=== PATIENT | male | born 1955 | race Caucasian/White ===

== ENCOUNTER 2019-06-05 11:29 | Inpatient (IN) | payer MEDICARE ==
[2019-06-05 12:54] LABS: VENOUS BLOOD HCO3 23.6 mmol/L (20-32); VENOUS BLOOD PCO2 35.9 mmHg (35-63); VENOUS BLOOD PH 7.44 (7.30-7.42)
[2019-06-05 13:01] LABS: HEMATOCRIT 32.8 % (37.9-51.0); HEMOGLOBIN 11.3 g/dL (13.5-17.0); MEAN CORPUSCULAR HEMOGLOBIN 30.5 pg (27.0-33.4); MEAN CORPUSCULAR HGB CONC 34.4 g/dL (32.0-36.0); MEAN CORPUSCULAR VOLUME 88 fl (80-97); PLATELET COUNT 210 10^3/uL (150-450); RED BLOOD COUNT 3.71 10^6/uL (4.35-5.55); RED CELL DISTRIBUTION WIDTH 16.6 % (11.5-14.0); WHITE BLOOD COUNT 6.5 10^3/uL (4.0-10.5)
[2019-06-05 13:11] LABS: ALBUMIN 2.4 g/dL (3.5-5.0); ALKALINE PHOSPHATASE 67 U/L (38-126); ANION GAP 14 (5-19); ASPARTATE AMINO TRANSFERASE 43 U/L (17-59); BILIRUBIN,DIRECT 2.4 mg/dL (0.0-0.4); BILIRUBIN,TOTAL 3.1 mg/dL (0.2-1.3); BLOOD UREA NITROGEN 30 mg/dL (7-20); CALCIUM 8.4 mg/dL (8.4-10.2); CARBON DIOXIDE 22 mmol/L (22-30); CHLORIDE 85 mmol/L (98-107); GLUCOSE 84 mg/dL (75-110); POTASSIUM 4.6 mmol/L (3.6-5.0); TOTAL PROTEIN 5.2 g/dL (6.3-8.2)
[2019-06-05] MEDS ORDERED: RINGERS SOLUTION,LACTATED 1,000 ML IV ONE (13:11)
--- NOTE | 2019-06-05 13:24 | RADIOLOGY REPORT (SQ) ---
EXAM DESCRIPTION: CHEST SINGLE VIEW COMPLETED DATE/TIME: 06/05/2019 1:03 pm REASON FOR STUDY: shortness of breath COMPARISON: None. EXAM PARAMETERS: NUMBER OF VIEWS: One view. TECHNIQUE: Single frontal radiographic view of the chest acquired. RADIATION DOSE: NA LIMITATIONS: None. FINDINGS: LUNGS AND PLEURA: Extensive density in the left chest. Right lung clear. MEDIASTINUM AND HILAR STRUCTURES: No masses. Contour normal. HEART AND VASCULAR STRUCTURES: Heart normal in size. Normal vasculature. BONES: No acute findings. HARDWARE: None in the chest. OTHER: No other significant finding. IMPRESSION: EXTENSIVE DENSITY IN THE LEFT CHEST. DIFFERENTIAL INCLUDES MASS, PNEUMONIA, AND PLEURAL EFFUSION. THERE MAY BE ELEVATION OF THE LEFT HEMIDIAPHRAGM WELL. COMPARISON WITH PRIOR STUDIES WOULD BE EXTREMELY HELPFUL. THE RIGHT LUNG IS CLEAR. TECHNICAL DOCUMENTATION: JOB ID: [id number] [employer]- All Rights Reserved Reading location - IP/workstation name: [email or web address]
[2019-06-05 13:28] LABS: ABSOLUTE LYMPHOCYTES# (MANUAL) 0.2 10^3/uL (0.5-4.7); ABSOLUTE MONOCYTES # (MANUAL) 0.1 10^3/uL (0.1-1.4); BAND NEUTROPHILS % (MANUAL) 1 % (3-5); BASOPHILS % (MANUAL) 0 % (0-2); EOSINOPHILS % (MANUAL) 0 % (0-6); LYMPHOCYTES % (MANUAL) 3 % (13-45); MONOCYTES % (MANUAL) 2 % (3-13); SEGMENTED NEUTROPHILS % (MAN) 94 % (42-78); TOTAL CELLS COUNTED 100
[2019-06-05 13:30] LABS: ANISOCYTOSIS SLIGHT; TOXIC GRANULATION 1+; TOXIC VACUOLATION PRESENT
[2019-06-05 13:31] LABS: PLATELET COMMENT ADEQUATE
--- NOTE | 2019-06-05 13:33 | ER Document Report ---
Entered by LILLIAN MERLOS SCRIBE 06/05/19 1228 Acting as scribe for:JUDE CHEUNG MD ED Respiratory Problem - General Chief Complaint: Shortness Of Breath Stated Complaint: DIFFICULTY BREATHING Time Seen by Provider: 06/05/19 12:17 Mode of Arrival: Ambulatory Information source: Patient Notes: 63-year-old male with recent lung cancer diagnosis that presents to the emergency department today with complaints of shortness of breath. Patient states it hurts when he breathes on the left-hand side. Patient has started radiation therapy and has had one round of chemotherapy about 2 weeks ago. When he went in for his second dosage of chemotherapy he "only got IV fluids because he was dehydrated". Patient also complains of nausea. TRAVEL OUTSIDE OF THE [place] IN LAST 30 DAYS: No - Related Data Allergies/Adverse Reactions: lisinopril Allergy (Verified 06/05/19 11:51) niacin Allergy (Verified 06/05/19 11:51) Home Medications: patient unsure Past Medical History - General Information source: Patient - Social History Smoking Status: Current Every Day Smoker Cigarette use (# per day): Yes Chew tobacco use (# tins/day): No Frequency of alcohol use: None Drug Abuse: None Lives with: Spouse/Significant other Family History: Reviewed & Not Pertinent Patient has suicidal ideation: No Patient has homicidal ideation: No Pulmonary Medical History: Reports: Hx COPD Malignancy Medical History: Reports Hx Lung Cancer Review of Systems - Review of Systems Constitutional: No symptoms reported EENT: No symptoms reported Cardiovascular: No symptoms reported Respiratory: See HPI, Hurts to breathe, Short of breath Gastrointestinal: No symptoms reported Genitourinary: No symptoms reported Male Genitourinary: No symptoms reported Musculoskeletal: No symptoms reported Skin: No symptoms reported Hematologic/Lymphatic: No symptoms reported Neurological/Psychological: No symptoms reported -: Yes All other systems reviewed and negative Physical Exam - Vital signs Vitals: Temp Pulse Resp BP Pulse Ox 97.7 F 125 H 26 H 103/50 L 95 06/05/19 11:34 06/05/19 11:34 06/05/19 11:34 06/05/19 11:34 06/05/19 11:34 - Notes Notes: Physical Exam: General: Alert. Looks tired and worn out. HEENT: Normocephalic. Atraumatic. PERRL. Extraocular movements intact. Oropharynx clear. Neck: Supple. Non-tender. Respiratory: Patient is dyspneic, a little tachypneic. Breath sounds are decreased in the left lower half of the chest. Cardiovascular: Regular tachycardia. Abdominal: Normal Inspection. Non-tender. No distension. Normal Bowel Sounds. Back: No gross abnormalities. Extremities: Moves all four extremities. Upper extremities: Normal inspection. Normal ROM. Lower extremities: Normal inspection. No edema. Normal ROM. Neurological: Normal cognition. AAOx4. Normal speech. Psychological: Normal affect. Normal Mood. Skin: Warm. Dry. Normal color. Course - Re-evaluation Re-evalutation: 06/05/19 14:47 Patient serum sodium is 120.5, chest x-ray shows large mass in the left chest. Venous blood gas shows the patient is hyperventilating to maintain his oxygen saturation with a venous PCO2 of 35.9 and pH of 7.44 06/05/19 14:48 I did discuss case with Dr. Walker. He states that the patient was much more robust when seen in the office the beginning of the week. He has been in the office 3 times this week, getting 2 L of IV fluids on Thursday, and 2 to 3 L in the office earlier in the week. He requests the patient get CT scan of the chest to have a baseline in our system, and to exclude worsening of his mass, new pneumonia, or effusion. - Vital Signs Vital signs: Temp Pulse Resp BP Pulse Ox 99.8 F 125 H 25 H 128/63 H 96 06/05/19 14:47 06/05/19 11:34 06/05/19 16:00 06/05/19 16:00 06/05/19 16:00 - Laboratory Result Diagrams: 06/05/19 12:10 06/05/19 12:10 Laboratory results interpreted by me: 06/05/19 06/05/19 06/05/19 12:10 12:10 12:10 RBC 3.71 L Hgb 11.3 L Hct 32.8 L RDW 16.6 H Seg Neuts % (Manual) 94 H Band Neutrophils % 1 L Lymphocytes % (Manual) 3 L Monocytes % (Manual) 2 L Abs Lymphs (Manual) 0.2 L VBG pH 7.44 H Sodium 120.5 L* Chloride 85 L BUN 30 H Total Bilirubin 3.1 H Direct Bilirubin 2.4 H Creatine Kinase Total Protein 5.2 L Albumin 2.4 L Urine Protein Urine Ketones Urine Blood Urine Bilirubin Urine Urobilinogen 06/05/19 06/05/19 12:10 13:56 RBC Hgb Hct RDW Seg Neuts % (Manual) Band Neutrophils % Lymphocytes % (Manual) Monocytes % (Manual) Abs Lymphs (Manual) VBG pH Sodium Chloride BUN Total Bilirubin Direct Bilirubin Creatine Kinase 42 L Total Protein Albumin Urine Protein 100 H Urine Ketones TRACE H Urine Blood MODERATE H Urine Bilirubin MODERATE H Urine Urobilinogen 4.0 H - Diagnostic Test Radiology reviewed: Image reviewed, Reports reviewed - Chest x-ray shows an extensive density in the left chest. He does have known stage III lung cancer. There are no comparison films available. CT scan of the chest shows extensive abnormality on the left with volume loss, innumerable nodules in the left upper lobe. Extensive density in left lung base may be due to a combination of mass, atelectasis, and/or pneumonia. - EKG Interpretation by Me EKG shows normal: Sinus rhythm, Mcewen, Intervals, QRS Complexes, ST-T Waves Rate: Tachycardia - 118 Rhythm: NSR - Consults Dr. Dias Time consulted: 15:50 Consulted provider: will come to ER Discharge - Discharge Clinical Impression: Shortness of breath, Hyponatremia, Hypoxia, Tachycardia Lung cancer Qualifiers: Laterality: left Lung location: lower lobe of lung Qualified Code(s): C34.32 - Malignant neoplasm of lower lobe, left bronchus or lung Hypotension Qualifiers: Hypotension type: unspecified hypotension type Qualified Code(s): I95.9 - H ypotension, unspecified Condition: Fair Disposition: ADMITTED INPATIENT Admitting Provider: Larissa (Hospitalist) Unit Admitted: IMCU Scribe Attestation: 06/05/19 14:59 I personally performed the services described in the documentation, reviewed and edited the documentation which was dictated to the scribe in my presence, and it accurately records my words and actions. I personally performed the services described in the documentation, reviewed and edited the documentation which was dictated to the scribe in my presence, and it accurately records my words and actions.
[2019-06-05 14:21] LABS: APPEARANCE,URINE SLIGHTLY-CLOUDY; BILIRUBIN,URINE MODERATE (NEGATIVE); COLOR,URINE AMBER; GLUCOSE, URINE NEGATIVE (NEGATIVE); KETONES,URINE TRACE mg/dL (NEGATIVE); LEUKOCYTE ESTERASE,URINE NEGATIVE (NEGATIVE); NITRITE,URINE NEGATIVE (NEGATIVE); PROTEIN,URINE 100 mg/dL (NEGATIVE); URINE SPECIFIC GRAVITY 1.025
[2019-06-05] MEDS ORDERED: DEXTROSE 5%-LACTATED RINGERS 1,000 ML IV ONE (14:40)
--- NOTE | 2019-06-05 15:22 | RADIOLOGY REPORT (SQ) ---
EXAM DESCRIPTION: CT CHEST WITHOUT COMPLETED DATE/TIME: 06/05/2019 3:04 pm REASON FOR STUDY: Known large left mass, increased SOB COMPARISON: None. TECHNIQUE: CT scan performed of the chest without intravenous contrast. Images reviewed with lung, soft tissue and bone windows. Reconstructed coronal and sagittal MPR images reviewed. All images st ored on PACS. All CT scanners at this facility use dose modulation, iterative reconstruction, and/or weight based d osing when appropriate to reduce radiation dose to as low as reasonably achievable (ALARA). [facility]: Dose Right [facility]: CareDose [facility]: Dose Right [facility]: Teradose 4D [facility]: Smart Whisher RADIATION DOSE: CT Rad equipment meets quality standard of care and radiation dose reduction techniq ues were employed. CTDIvol: 6.9 mGy. DLP: 251 mGy-cm. mGy. LIMITATIONS: No technical limitations. FINDINGS: LUNGS AND PLEURA: Volume loss on the left. Innumerable nodules in the left upper lobe. E xtensive density in the left lung base with air bronchograms. Left pleural effusion. Right lung jonah ar. HILAR AND MEDIASTINAL STRUCTURES: No identified masses or abnormal nodes. No obvious aneurysm. HEART AND VASCULAR STRUCTURES: No aneurysm. No pericardial effusion. UPPER ABDOMEN: No significant findings. Limited exam. THYROID AND OTHER SOFT TISSUES: No masses. No adenopathy. BONES: No significant finding. HARDWARE: None in the chest. OTHER: No other significant findings. IMPRESSION: EXTENSIVE ABNORMALITY ON THE LEFT. VOLUME LOSS. INNUMERABLE NODULES IN THE LEFT UPPER LOBE. EXTENSIVE DENSITY IN THE LEFT LUNG BASE WHICH MAY BE DUE TO A COMBINATION OF MASS, ATELECTASIS , AND/OR PNEUMONIA. NO PRIORS TO ASSESS FOR STABILITY OR PROGRESSION. RIGHT LUNG CLEAR. TECHNICAL DOCUMENTATION: JOB ID: [id number] Quality ID # [id number]: Final reports with documentation of one or more dose reduction techniques (e.g., Au tomated exposure control, adjustment of the mA and/or kV according to patient size, use of iterative reconstruction technique) 2010 [employer]- All Rights Reserved Reading location - IP/workstation name: [email or web address]
--- NOTE | 2019-06-05 16:34 | PDOC H&P ---
History of Present Illness Admission Date/PCP: 06/05/19 16:02 GUSTAVO SANCHEZ MD History of Present Illness: EBEN BLOOD SR is a 63 year old male past medical history of CAD status post PCI x2 stents, hyperlipidemia, hypertension, nephrotic syndrome, and recently diagnosed lung cancer currently on XRT, last chemo 9 days ago, last radiation last Thursday, presented to ED complaining of worsening shortness of breath, left- sided pleuritic chest pain, fever, chills, nausea, productive cough, severe fatigue. Denies any abdominal pain, vomiting, diarrhea, constipation, or any urinary symptoms. In ED he was found to be tachypneic, tachycardic, with sodium of [address] of left-sided complete opacification. Past Medical History Pulmonary Medical History: Reports: Chronic Obstructive Pulmonary Disease (COPD) Malignancy Medical History: Reports: Lung Cancer Social History Lives with: Spouse/Significant other Smoking Status: Current Every Day Smoker Electronic Cigarette use?: No Family History Family History: Reviewed & Not Pertinent Parental Family History Reviewed: Yes Children Family History Reviewed: Yes Sibling(s) Family History Reviewed.: Yes Medication/Allergy Allergies/Adverse Reactions: lisinopril Allergy (Verified 06/05/19 11:51) niacin Allergy (Verified 06/05/19 11:51) Review of Systems Review of Systems: as per hpi Physical Exam Vital Signs: Temp Pulse Resp BP Pulse Ox 99.8 F 125 H 25 H 128/63 H 96 06/05/19 14:47 06/05/19 11:34 06/05/19 16:00 06/05/19 16:00 06/05/19 16:00 Intake & Output 06/04/19 06/05/19 06/06/19 06:59 06:59 06:59 Intake Total 1000 Balance 1000 Weight 65.771 kg General appearance: PRESENT: mild distress Respiratory exam: PRESENT: chest wall tenderness, decreased breath sounds - Left chest., tachypnea. ABSENT: rales, rhonchi, wheezes Cardiovascular exam: PRESENT: RRR, tachycardia. ABSENT: diastolic murmur, rubs, systolic murmur GI/Abdominal exam: PRESENT: normal bowel sounds, soft. ABSENT: distended, guarding, mass, organolmegaly, rebound, tenderness Extremities exam: PRESENT: full ROM. ABSENT: calf tenderness, clubbing, pedal edema Neurological exam: PRESENT: alert, awake, oriented to person, oriented to place, oriented to time, oriented to situation, CN II-XII grossly intact. ABSENT: motor sensory deficit Results Laboratory Results: 06/05/19 12:10 06/05/19 12:10 06/05/19 06/05/19 06/05/19 12:10 12:10 12:10 WBC 6.5 RBC 3.71 L Hgb 11.3 L Hct 32.8 L MCV 88 MCH 30.5 MCHC 34.4 RDW 16.6 H Plt Count 210 Seg Neutrophils % Not Reportable VBG pH VBG pCO2 VBG HCO3 VBG Base Excess Sodium 120.5 L* Potassium 4.6 Chloride 85 L Carbon Dioxide 22 Anion Gap 14 BUN 30 H Creatinine 0.82 Est GFR ( Amer) > 60 Glucose 84 Lactic Acid 1.7 Calcium 8.4 Magnesium Total Bilirubin 3.1 H AST 43 Alkaline Phosphatase 67 Total Protein 5.2 L Albumin 2.4 L Urine Color Urine Appearance Urine pH Ur Specific [place] Urine Protein Urine Glucose (UA) Urine Ketones Urine Blood Urine Nitrite Ur Leukocyte Esterase Urine WBC (Auto) Urine RBC (Auto) 06/05/19 06/05/19 06/05/19 12:10 12:10 13:56 WBC RBC Hgb Hct MCV MCH MCHC RDW Plt Count Seg Neutrophils % VBG pH 7.44 H VBG pCO2 35.9 VBG HCO3 23.6 VBG Base Excess 0 Sodium Potassium Chloride Carbon Dioxide Anion Gap BUN Creatinine Est GFR ( Amer) Glucose Lactic Acid Calcium Magnesium 2.1 Total Bilirubin AST Alkaline Phosphatase Total Protein Albumin Urine Color BENJY Urine Appearance SLIGHTLY-CLOUDY Urine pH 5.0 Ur Specific [place] 1.025 Urine Protein 100 H Urine Glucose (UA) NEGATIVE Urine Ketones TRACE H Urine Blood MODERATE H Urine Nitrite NEGATIVE Ur Leukocyte Esterase NEGATIVE Urine WBC (Auto) 3 Urine RBC (Auto) 1 06/05/19 06/05/19 12:10 12:10 Creatine Kinase 42 L Troponin I < 0.012 Impressions: Chest X-Ray 06/05/19 00:00 IMPRESSION: EXTENSIVE DENSITY IN THE LEFT CHEST. DIFFERENTIAL INCLUDES MASS, PNEUMONIA, AND PLEURAL EFFUSION. THERE MAY BE ELEVATION OF THE LEFT HEMIDIAPHRAGM WELL. COMPARISON WITH PRIOR STUDIES WOULD BE EXTREMELY HELPFUL. THE RIGHT LUNG IS CLEAR. Chest CT 06/05/19 14:41 IMPRESSION: EXTENSIVE ABNORMALITY ON THE LEFT. VOLUME LOSS. INNUMERABLE NODULES IN THE LEFT UPPER LOBE. EXTENSIVE DENSITY IN THE LEFT LUNG BASE WHICH MAY BE DUE TO A COMBINATION OF MASS, ATELECTASIS, AND/OR PNEUMONIA. NO PRIORS TO ASSESS FOR STABILITY OR PROGRESSION. RIGHT LUNG CLEAR. Assessment and Plan - Diagnosis (1) Acute respiratory failure Qualifiers: Respiratory failure complication: unspecified whether with hypoxia or hypercapnia Qualified Code(s): J96.00 - Acute respiratory failure, unspecified whether with hypoxia or hypercapnia Is this a current diagnosis for this admission?: Yes Plan: Multifactorial. Likely pneumonia/pneumonitis given the history of recently diagnosed lung cancer and chemoradiation. Blood and sputum culture. We will start on broad-spectrum IV antibiotics, IV steroids, aggressive pulmonary toileting, flutter valve, incentive spirometry, DuoNeb's, supplemental oxygen, PRN BiPAP. (2) Hyponatremia Is this a current diagnosis for this admission?: Yes Plan: Likely SIADH due to underlying lung malignancy. We will check urine osmolality and TSH. Continue normal saline for now. Limit free water intake. (3) Lung cancer Qualifiers: Laterality: left Lung location: lower lobe of lung Qualified Code(s): C34.32 - Malignant neoplasm of lower lobe, left bronchus or lung Is this a current diagnosis for this admission?: Yes Plan: History of tobacco abuse. Diagnosed a month ago. Left lung cancer. No biopsy results available. See Dr. Sanchez as outpatient. Oncology been notified. Pending recommendations. (4) Hx of coronary artery disease Is this a current diagnosis for this admission?: Yes Plan: History of CAD with PCI x II stent. Denies any anginal pain. Will restart home meds. Outpatient PCP and cardiology follow-up. (5) HTN (hypertension) Is this a current diagnosis for this admission?: Yes Plan: Restart home meds. Adjust meds as needed. (6) Hx: nephrotic syndrome Is this a current diagnosis for this admission?: Yes Plan: History of nephrotic syndrome. No previous history available. As per family he was started on some extremity medication and his proteinuria resolved. Outpatient nephrology follow-up. (7) Hyperlipidemia Is this a current diagnosis for this admission?: Yes Plan: Restart home meds. (8) Former smokeless tobacco use Is this a current diagnosis for this admission?: Yes Plan: Former heavy smoker. Quit a month ago. Will provide NicoDerm patch if required. Encouraged abstinence.
[2019-06-05] MEDS ORDERED: OXYCODONE-ACETAMINOPHEN 5-325 MG TABLET PO PRN (16:46)
[2019-06-05] MEDS ORDERED: MAG HYDROX/AL HYDROX/SIMETH SUSP 30 ML UDCUP PO PRN (16:46)
[2019-06-05] MEDS ORDERED: ACETAMINOPHEN 325 MG TABLET PO PRN (16:46)
[2019-06-05] MEDS ORDERED: PROMETHAZINE HCL INJ 25 MG/1 ML VIAL IV PRN (16:46)
[2019-06-05] MEDS ORDERED: ONDANSETRON HCL INJ/PF 4 MG/2 ML SDV IV PRN (16:46)
[2019-06-05] MEDS ORDERED: HYDRALAZINE HCL INJ/PF 20 MG/1 ML SDV IV PRN (16:50)
[2019-06-05] MEDS ORDERED: MORPHINE SULFATE 10 MG/ML INJ IV PRN (16:50)
[2019-06-05] MEDS ORDERED: LORAZEPAM INJ 2 MG/1 ML VIAL IV PRN (16:50)
[2019-06-05] MEDS ORDERED: VANCOMYCIN HCL 0 MG in DEXTROSE 5%-WATER 250 ML IV NR (17:15)
[2019-06-05] MEDS ORDERED: METOPROLOL TARTRATE PF/INJ 5 MG/5 ML SDV IV PRN (17:15)
[2019-06-05] MEDS ORDERED: METHYLPREDNISOLONE INJ 40 MG/1 ML SDV IV ONE (17:30)
[2019-06-05] MEDS: GUAIFENESIN/CODEINE PHOS 100-10 MG/ 5 ML UDC PO SCH (17:45)
[2019-06-05] MEDS: NORMAL SALINE 1000 ML 1,000 ML IV PRN (17:45)
[2019-06-05] MEDS: PANTOPRAZOLE SODIUM 40 MG TABLET.DR PO SCH (17:45)
[2019-06-05] MEDS ORDERED: VANCOMYCIN HCL INJ 1000 MG VIAL ONE (17:48)
[2019-06-05] MEDS ORDERED: PIPERACILLIN/TAZOBACTAM 4.5 GM VIAL IV ONE (17:49)
[2019-06-05] MEDS: PIPERACILLIN SODIUM/TAZOBACTAM 4.5 GM in NORMAL SALINE 100 ML IV SCH (18:41)
[2019-06-05 19:32] LABS: ANION GAP 13 (5-19); BLOOD UREA NITROGEN 25 mg/dL (7-20); CALCIUM 8.1 mg/dL (8.4-10.2); CARBON DIOXIDE 21 mmol/L (22-30); CHLORIDE 91 mmol/L (98-107); GLUCOSE 85 mg/dL (75-110); POTASSIUM 4.1 mmol/L (3.6-5.0)
[2019-06-05] MEDS: VANCOMYCIN HCL 1,000 MG in DEXTROSE 5%-WATER 250 ML IV SCH (20:23)
[2019-06-05] MEDS: LEVALBUTEROL HCL NEB 0.63 MG/3 ML AMPUL NEB SCH (20:25)
[2019-06-05] MEDS: TEMAZEPAM 7.5 MG CAPSULE PO PRN (22:12)
[2019-06-05] MEDS: HEPARIN SOD (PORCINE) 5,000 UNIT/ML 1 ML VIAL SUBCUT SCH (22:12)
[2019-06-06] MEDS: PIPERACILLIN SODIUM/TAZOBACTAM 4.5 GM in NORMAL SALINE 100 ML IV SCH ×5 (00:17→20:45)
[2019-06-06] MEDS: LEVALBUTEROL HCL NEB 0.63 MG/3 ML AMPUL NEB SCH ×6 (00:25→20:44)
[2019-06-06] MEDS: METHYLPREDNISOLONE INJ 40 MG/1 ML SDV IV SCH ×3 (02:12→18:07)
--- NOTE | 2019-06-06 02:20 | EKG REPORT ---
SEVERITY:- OTHERWISE NORMAL ECG - SINUS TACHYCARDIA : Confirmed by: Elvia Estrella 06-Jun-2019 02:18:56
[2019-06-06] MEDS ORDERED: VANCOMYCIN HCL INJ 1000 MG VIAL ONE (02:33)
[2019-06-06] MEDS: PANTOPRAZOLE SODIUM 40 MG TABLET.DR PO SCH ×2 (05:34→18:07)
[2019-06-06] MEDS: HEPARIN SOD (PORCINE) 5,000 UNIT/ML 1 ML VIAL SUBCUT SCH ×3 (05:34→22:42)
[2019-06-06] MEDS: VANCOMYCIN HCL 1,000 MG in DEXTROSE 5%-WATER 250 ML IV SCH (05:34)
[2019-06-06] MEDS: NORMAL SALINE 1000 ML 1,000 ML IV PRN ×2 (05:36→18:52)
[2019-06-06 06:09] LABS: ARTERIAL BLOOD BASE EXCESS -2.9 mmol/L; ARTERIAL BLOOD H2CO3 1.04 mmol/L (1.05-1.35); ARTERIAL BLOOD HCO3 21.2 mmol/L (20-24); ARTERIAL BLOOD PCO2 34.6 mmHg (35-45); ARTERIAL BLOOD PH 7.41 (7.35-7.45); ARTERIAL BLOOD PO2 79.9 mmHg (80-100); ARTERIAL BLOOD TOTAL CO2 22.3 mmol/L (23-27)
[2019-06-06 06:12] LABS: ARTERIAL BLOOD FIO2 ROOM AIR
[2019-06-06 06:15] LABS: INTERNATIONAL RATION (INR) 1.14; PROTHROMBIN TIME 14.7 SEC (11.4-15.4)
[2019-06-06 06:23] LABS: HEMATOCRIT 28.9 % (37.9-51.0); HEMOGLOBIN 9.9 g/dL (13.5-17.0); MEAN CORPUSCULAR HEMOGLOBIN 30.4 pg (27.0-33.4); MEAN CORPUSCULAR HGB CONC 34.2 g/dL (32.0-36.0); MEAN CORPUSCULAR VOLUME 89 fl (80-97); PLATELET COUNT 193 10^3/uL (150-450); RED BLOOD COUNT 3.24 10^6/uL (4.35-5.55); RED CELL DISTRIBUTION WIDTH 16.6 % (11.5-14.0); WHITE BLOOD COUNT 4.4 10^3/uL (4.0-10.5)
[2019-06-06 07:18] LABS: ABSOLUTE LYMPHOCYTES# (MANUAL) 0.3 10^3/uL (0.5-4.7); ABSOLUTE MONOCYTES # (MANUAL) 0.2 10^3/uL (0.1-1.4); ANISOCYTOSIS 1+; BAND NEUTROPHILS % (MANUAL) 3 % (3-5); BASOPHILS % (MANUAL) 0 % (0-2); EOSINOPHILS % (MANUAL) 0 % (0-6); HYPOCHROMASIA 2+; LYMPHOCYTES % (MANUAL) 6 % (13-45); MONOCYTES % (MANUAL) 4 % (3-13); SEGMENTED NEUTROPHILS % (MAN) 87 % (42-78); TOTAL CELLS COUNTED 100
[2019-06-06 07:19] LABS: PLATELET COMMENT ADEQUATE
--- NOTE | 2019-06-06 08:49 | PDOC CONSULTATION ---
Consultation Consult Date: 06/06/19 Attending physician:: BERNARDO HOLLIS Provider Consulted: GUSTAVO SANCHEZ Consult reason:: Patient with stage III lung cancer here with severe dehydration nausea and vomiting and weakness History of Present Illness Admission Date/PCP: 06/05/19 16:02 GUSTAVO SANCHEZ MD Patient complains of: Nausea vomiting, weakness, shortness of breath History of Present Illness: EBEN BLOOD SR is a 63 year old male who recently was diagnosed with stage III squamous cell carcinoma of the lung has a large left lung mass with endobronchial obstruction, and has been started on concurrent chemoradiation, has had only 1 cycle of weekly carbo/Taxol and last week presented with severe nausea and vomiting after chemotherapy, throughout the week we gave him several days of hydration, unfortunately over the weekend he became extremely short of breath and continued nausea and vomiting could not get out of bed or catch his breath, so I instructed him to come to the ED. Here in the ER, we repeated a CT of the chest without contrast and this showed more volume loss on the left with more obstruction, possible pneumonia. Currently is being treated for both pneumonia as well as COPD exacerbation, and also is being hydrated and giv antiemetics. He looks better today. Past Medical History Pulmonary Medical History: Reports: Chronic Obstructive Pulmonary Disease (COPD) Malignancy Medical History: Reports: Lung Cancer Psychiatric Medical History: Denies: Depression Past Surgical History Past Surgical History: Reports: Other - Bronchoscopy with biopsy Social History Information Source: Patient Lives with: Spouse/Significant other Smoking Status: Current Every Day Smoker Cigarettes Packs Per Day: 1 Electronic Cigarette use?: No Number of Years Smokin Frequency of Alcohol Use: None Hx Recreational Drug Use: No Drugs: None Hx Prescription Drug Abuse: No - Advance Directive Resuscitation Status: Full Code Family History Family History: Reviewed & Not Pertinent Parental Family History Reviewed: Yes Children Family History Reviewed: Yes Sibling(s) Family History Reviewed.: Yes Medication/Allergy Home Medications: Atorvastatin Calcium [Lipitor 10 mg Tablet] 10 mg PO QHS 06/06/19 Clopidogrel Bisulfate [Plavix 75 mg Tablet] 75 mg PO DAILY 06/06/19 Dexamethasone [Decadron 4 Mg Tablet] 4 mg PO DAILY 06/06/19 Glycopyrrolate/Formoterol Fum [Bevespi Aerosphere Inhaler] puff IH 06/06/19 Hydrocodone/Chlorphen P-Stirex [Hydrocodone-Chlorpheniram Susp] 5 ml PO Q12HP PRN 06/06/19 Isosorbide Mononitrate [Imdur 30 mg Tablet.er] 30 mg PO DAILY 06/06/19 Megestrol Acetate 400 mg PO BID 06/06/19 Metoprolol Tartrate [Lopressor 25 mg Tablet] 25 mg PO Q12 06/06/19 Ondansetron [Zofran Odt 4 mg Tablet] 8 mg PO Q8HP PRN MDD filled 05/27 for 10 day supply 06/06/19 Allergies/Adverse Reactions: lisinopril Allergy (Verified 06/05/19 11:51) niacin Allergy (Verified 06/05/19 11:51) Review of Systems Constitutional: ABSENT: chills, fever(s), headache(s), weight gain, weight loss Eyes: ABSENT: visual disturbances Ears: ABSENT: hearing changes Cardiovascular: ABSENT: chest pain, dyspnea on exertion, edema, orthropnea, palpitations Respiratory: ABSENT: cough, hemoptysis Gastrointestinal: ABSENT: abdominal pain, constipation, diarrhea, hematemesis, hematochezia, nausea, vomiting Genitourinary: ABSENT: dysuria, hematuria Musculoskeletal: ABSENT: joint swelling Integumentary: ABSENT: rash, wounds Neurological: ABSENT: abnormal gait, abnormal speech, confusion, dizziness, focal weakness, syncope Psychiatric: ABSENT: anxiety, depression, homidical ideation, suicidal ideation Endocrine: ABSENT: cold intolerance, heat intolerance, polydipsia, polyuria Hematologic/Lymphatic: ABSENT: easy bleeding, easy bruising Physical Exam Vital Signs: Temp Pulse Resp BP Pulse Ox 97.4 F 88 17 110/49 L 95 06/06/19 07:58 06/06/19 07:58 06/06/19 07:58 06/06/19 07:58 06/06/19 07:58 Intake & Output 06/05/19 06/06/19 06/07/19 06:59 06:59 06:59 Intake Total 4100 250 Balance 4100 250 Weight 68 kg General appearance: PRESENT: no acute distress, well-developed, well-nourished Head exam: PRESENT: atraumatic, normocephalic Eye exam: PRESENT: conjunctiva pink, EOMI, PERRLA. ABSENT: scleral icterus Ear exam: PRESENT: normal external ear exam Mouth exam: PRESENT: moist, tongue midline Neck exam: ABSENT: carotid bruit, JVD, lymphadenopathy, thyromegaly Respiratory exam: PRESENT: clear to auscultation dianne. ABSENT: rales, rhonchi, wheezes Cardiovascular exam: PRESENT: RRR. ABSENT: diastolic murmur, rubs, systolic murmur Pulses: PRESENT: normal dorsalis pedis pul Vascular exam: PRESENT: normal capillary refill GI/Abdominal exam: PRESENT: normal bowel sounds, soft. ABSENT: distended, guarding, mass, organolmegaly, rebound, tenderness Rectal exam: PRESENT: deferred Extremities exam: PRESENT: full ROM. ABSENT: calf tenderness, clubbing, pedal edema Neurological exam: PRESENT: alert, awake, oriented to person, oriented to place, oriented to time, oriented to situation, CN II-XII grossly intact. ABSENT: motor sensory deficit Psychiatric exam: PRESENT: appropriate affect, normal mood. ABSENT: homicidal ideation, suicidal ideation Skin exam: PRESENT: dry, intact, warm. ABSENT: cyanosis, rash Results Laboratory Results: 06/06/19 05:22 06/05/19 17:55 06/05/19 06/05/19 06/05/19 12:10 12:10 12:10 WBC 6.5 RBC 3.71 L Hgb 11.3 L Hct 32.8 L MCV 88 MCH 30.5 MCHC 34.4 RDW 16.6 H Plt Count 210 Seg Neutrophils % Not Reportable Carbonic Acid HCO3/H2CO3 Ratio ABG pH ABG pCO2 ABG pO2 ABG HCO3 ABG O2 Saturation ABG Base Excess VBG pH VBG pCO2 VBG HCO3 VBG Base Excess FiO2 Sodium 120.5 L* Potassium 4.6 Chloride 85 L Carbon Dioxide 22 Anion Gap 14 BUN 30 H Creatinine 0.82 Est GFR ( Amer) > 60 Glucose 84 Lactic Acid 1.7 Calcium 8.4 Magnesium Total Bilirubin 3.1 H AST 43 Alkaline Phosphatase 67 Total Protein 5.2 L Albumin 2.4 L TSH Urine Color Urine Appearance Urine pH Ur Specific [place] Urine Protein Urine Glucose (UA) Urine Ketones Urine Blood Urine Nitrite Ur Leukocyte Esterase Urine WBC (Auto) Urine RBC (Auto) Urine Osmolality 06/05/19 06/05/19 06/05/19 12:10 12:10 12:10 WBC RBC Hgb Hct MCV MCH MCHC RDW Plt Count Seg Neutrophils % Carbonic Acid HCO3/H2CO3 Ratio ABG pH ABG pCO2 ABG pO2 ABG HCO3 ABG O2 Saturation ABG Base Excess VBG pH 7.44 H VBG pCO2 35.9 VBG HCO3 23.6 VBG Base Excess 0 FiO2 Sodium Potassium Chloride Carbon Dioxide Anion Gap BUN Creatinine Est GFR ( Amer) Glucose Lactic Acid Calcium Magnesium 2.1 Total Bilirubin AST Alkaline Phosphatase Total Protein Albumin TSH 0.73 Urine Color Urine Appearance Urine pH Ur Specific [place] Urine Protein Urine Glucose (UA) Urine Ketones Urine Blood Urine Nitrite Ur Leukocyte Esterase Urine WBC (Auto) Urine RBC (Auto) Urine Osmolality 06/05/19 06/05/19 06/05/19 13:56 13:56 17:55 WBC RBC Hgb Hct MCV MCH MCHC RDW Plt Count Seg Neutrophils % Carbonic Acid HCO3/H2CO3 Ratio ABG pH ABG pCO2 ABG pO2 ABG HCO3 ABG O2 Saturation ABG Base Excess VBG pH VBG pCO2 VBG HCO3 VBG Base Excess FiO2 Sodium 124.7 L Potassium 4.1 Chloride 91 L Carbon Dioxide 21 L Anion Gap 13 BUN 25 H Creatinine 0.93 Est GFR ( Amer) > 60 Glucose 85 Lactic Acid Calcium 8.1 L Magnesium Total Bilirubin AST Alkaline Phosphatase Total Protein Albumin TSH Urine Color BENJY Urine Appearance SLIGHTLY-CLOUDY Urine pH 5.0 Ur Specific [place] 1.025 Urine Protein 100 H Urine Glucose (UA) NEGATIVE Urine Ketones TRACE H Urine Blood MODERATE H Urine Nitrite NEGATIVE Ur Leukocyte Esterase NEGATIVE Urine WBC (Auto) 3 Urine RBC (Auto) 1 Urine Osmolality 709 06/06/19 06/06/19 06/06/19 05:22 05:22 05:50 WBC 4.4 RBC 3.24 L Hgb 9.9 L Hct 28.9 L MCV 89 MCH 30.4 MCHC 34.2 RDW 16.6 H Plt Count 193 Seg Neutrophils % Not Reportable Carbonic Acid 1.04 L HCO3/H2CO3 Ratio 20:1 ABG pH 7.41 ABG pCO2 34.6 L ABG pO2 79.9 L ABG HCO3 21.2 ABG O2 Saturation 96.0 ABG Base Excess -2.9 VBG pH VBG pCO2 VBG HCO3 VBG Base Excess FiO2 ROOM AIR Sodium Potassium Chloride Carbon Dioxide Anion Gap BUN Creatinine Est GFR ( Amer) Glucose Lactic Acid Calcium Magnesium 2.2 Total Bilirubin AST Alkaline Phosphatase Total Protein Albumin TSH Urine Color Urine Appearance Urine pH Ur Specific [place] Urine Protein Urine Glucose (UA) Urine Ketones Urine Blood Urine Nitrite Ur Leukocyte Esterase Urine WBC (Auto) Urine RBC (Auto) Urine Osmolality 06/05/19 06/05/19 12:10 12:10 Creatine Kinase 42 L Troponin I < 0.012 Impressions: Chest X-Ray 06/05/19 00:00 IMPRESSION: EXTENSIVE DENSITY IN THE LEFT CHEST. DIFFERENTIAL INCLUDES MASS, PNEUMONIA, AND PLEURAL EFFUSION. THERE MAY BE ELEVATION OF THE LEFT HEMIDIAPHRAGM WELL. COMPARISON WITH PRIOR STUDIES WOULD BE EXTREMELY HE LPFUL. THE RIGHT LUNG IS CLEAR. Chest CT 06/05/19 14:41 IMPRESSION: EXTENSIVE ABNORMALITY ON THE LEFT. VOLUME LOSS. INNUMERABLE NODULES IN THE LEFT UPPER LOBE. EXTENSIVE DENSITY IN THE LEFT LUNG BASE WHICH MAY BE DUE TO A COMBINATION OF MASS, ATELECTASIS, AND/OR PNEUMONIA. NO PRIORS TO ASSESS FOR STABILITY OR PROGRESSION. RIGHT LUNG CLEAR. Status: Image reviewed by me Assessment & Plan - Diagnosis (1) Acute respiratory failure Qualifiers: Respiratory failure complication: hypoxia Qualified Code(s): J96.01 - Acute respiratory failure with hypoxia Is this a current diagnosis for this admission?: Yes Plan: Secondary in part probably to pneumonia versus COPD exacerbation versus tumor effect, continue per hospitalist team (2) Pneumonia involving left lung Qualifiers: Pneumonia type: due to Escherichia coli Lung location: upper lobe of lung Qualified Code(s): J15.5 - Pneumonia due to Escherichia coli Is this a current diagnosis for this admission?: Yes Plan: Pneumonia probably postobstructive in part, continue with broad-spectrum antibiotics, await cultures (3) Hyponatremia Is this a current diagnosis for this admission?: Yes Plan: Probably secondary to the lung cancer in part and also secondary to dehydration, continue with hydration (4) Lung cancer Qualifiers: Laterality: left Lung location: lower lobe of lung Qualified Code(s): C34.32 - Malignant neoplasm of lower lobe, left bronchus or lung Is this a current diagnosis for this admission?: Yes Plan: Holding chemo and radiation, will probably be held from radiation for at least the next 2 to 3 days, we will have to decide as an outpatient on further steps of care. - Time Time Spent: Greater than 70 Minutes - Inpatient Certification Based on my medical assessment, after consideration of the patient's comorbidities, presenting symptoms, or acuity I expect that the services needed warrant INPATIENT care.: Yes I certify that my determination is in accordance with my understanding of Medicare's requirements for reasonable and necessary INPATIENT services [42 CFR 412.3e].: Yes Medical Necessity: Need For IV Fluids, Need for Nebulizer Therapy and Monitoring of Response, Need for IV Antibiotics, Risk of Complication if Not Cared For in Hospital
[2019-06-06] MEDS: ASPIRIN 81 MG TABLET, CHEWABLE PO SCH (09:30)
[2019-06-06] MEDS: GUAIFENESIN/CODEINE PHOS 100-10 MG/ 5 ML UDC PO SCH ×3 (09:31→18:07)
[2019-06-06] MEDS: DOCUSATE SODIUM 100 MG CAPSULE PO SCH (09:31)
--- NOTE | 2019-06-06 14:19 | PDOC PROGRESS REPORT ---
Subjective Progress Note for:: 06/06/19 Subjective:: EBEN BLOOD SR is a 63 year old male past medical history of CAD status post PCI x2 stents, hyperlipidemia, hypertension, nephrotic syndrome, and recently diagnosed lung cancer currently on XRT, last chemo 9 days ago, last radiation last Thursday, presented to ED complaining of worsening shortness of breath, left- sided pleuritic chest pain, fever, chills, nausea, productive cough, severe fatigue. Denies any abdominal pain, vomiting, diarrhea, constipation, or any urinary symptoms. In ED he was found to be tachypneic, tachycardic, with sodium of [address] of left-sided complete opacification. 06/06/2019. No acute events overnight. Patient has much improved, on my encounter patient is sitting at the edge of the bed receiving his neb treatment. Stating that he is feeling much better than yesterday, SPO2 WNL on 2 L. Denies any fever, chills, nausea, vomiting, diarrhea, constipation or any urinary symptoms. Reason For Visit: ACUTE RESPIRATORY FAILURE,LUNG CANCER Physical Exam Vital Signs: Temp Pulse Resp BP Pulse Ox 97.9 F 90 16 102/49 L 96 06/06/19 11:54 06/06/19 12:15 06/06/19 12:15 06/06/19 11:54 06/06/19 12:15 Intake & Output 06/05/19 06/06/19 06/07/19 06:59 06:59 06:59 Intake Total 4100 350 Balance 4100 350 Weight 68 kg General appearance: PRESENT: no acute distress, well-developed, well-nourished Head exam: PRESENT: atraumatic, normocephalic Respiratory exam: PRESENT: clear to auscultation dianne, decreased breath sounds - LLL., tachypnea. ABSENT: rales, rhonchi, wheezes Cardiovascular exam: PRESENT: RRR. ABSENT: diastolic murmur, rubs, systolic murmur GI/Abdominal exam: PRESENT: normal bowel sounds, soft. ABSENT: distended, guarding, mass, organolmegaly, rebound, tenderness Neurological exam: PRESENT: alert, awake, oriented to person, oriented to place, oriented to time, oriented to situation, CN II-XII grossly intact. ABSENT: m otor sensory deficit Results Laboratory Results: 06/06/19 05:22 06/05/19 17:55 06/05/19 06/05/19 06/05/19 12:10 13:56 13:56 WBC RBC Hgb Hct MCV MCH MCHC RDW Plt Count Seg Neutrophils % Carbonic Acid HCO3/H2CO3 Ratio ABG pH ABG pCO2 ABG pO2 ABG HCO3 ABG O2 Saturation ABG Base Excess FiO2 Sodium Potassium Chloride Carbon Dioxide Anion Gap BUN Creatinine Est GFR ( Amer) Glucose Calcium Magnesium TSH 0.73 Urine Color BENJY Urine Appearance SLIGHTLY-CLOUDY Urine pH 5.0 Ur Specific [place] 1.025 Urine Protein 100 H Urine Glucose (UA) NEGATIVE Urine Ketones TRACE H Urine Blood MODERATE H Urine Nitrite NEGATIVE Ur Leukocyte Esterase NEGATIVE Urine WBC (Auto) 3 Urine RBC (Auto) 1 Urine Osmolality 709 06/05/19 06/06/19 06/06/19 17:55 05:22 05:22 WBC 4.4 RBC 3.24 L Hgb 9.9 L Hct 28.9 L MCV 89 MCH 30.4 MCHC 34.2 RDW 16.6 H Plt Count 193 Seg Neutrophils % Not Reportable Carbonic Acid HCO3/H2CO3 Ratio ABG pH ABG pCO2 ABG pO2 ABG HCO3 ABG O2 Saturation ABG Base Excess FiO2 Sodium 124.7 L Potassium 4.1 Chloride 91 L Carbon Dioxide 21 L Anion Gap 13 BUN 25 H Creatinine 0.93 Est GFR ( Amer) > 60 Glucose 85 Calcium 8.1 L Magnesium 2.2 TSH Urine Color Urine Appearance Urine pH Ur Specific [place] Urine Protein Urine Glucose (UA) Urine Ketones Urine Blood Urine Nitrite Ur Leukocyte Esterase Urine WBC (Auto) Urine RBC (Auto) Urine Osmolality 06/06/19 05:50 WBC RBC Hgb Hct MCV MCH MCHC RDW Plt Count Seg Neutrophils % Carbonic Acid 1.04 L HCO3/H2CO3 Ratio 20:1 ABG pH 7.41 ABG pCO2 34.6 L ABG pO2 79.9 L ABG HCO3 21.2 ABG O2 Saturation 96.0 ABG Base Excess -2.9 FiO2 ROOM AIR Sodium Potassium Chloride Carbon Dioxide Anion Gap BUN Creatinine Est GFR ( Amer) Glucose Calcium Magnesium TSH Urine Color Urine Appearance Urine pH Ur Specific [place] Urine Protein Urine Glucose (UA) Urine Ketones Urine Blood Urine Nitrite Ur Leukocyte Esterase Urine WBC (Auto) Urine RBC (Auto) Urine Osmolality 06/05/19 06/05/19 12:10 12:10 Creatine Kinase 42 L Troponin I < 0.012 Impressions: Chest X-Ray 06/05/19 00:00 IMPRESSION: EXTENSIVE DENSITY IN THE LEFT CHEST. DIFFERENTIAL INCLUDES MASS, PNEUMONIA, AND PLEURAL EFFUSION. THERE MAY BE ELEVATION OF THE LEFT HEMIDIAPHRAGM WELL. COMPARISON WITH PRIOR STUDIES WOULD BE EXTREMELY HELPFUL. THE RIGHT LUNG IS CLEAR. Chest CT 06/05/19 14:41 IMPRESSION: EXTENSIVE ABNORMALITY ON THE LEFT. VOLUME LOSS. INNUMERABLE NODULES IN THE LEFT UPPER LOBE. EXTENSIVE DENSITY IN THE LEFT LUNG BASE WHICH MAY BE DUE TO A COMBINATION OF MASS, ATELECTASIS, AND/OR PNEUMONIA. NO PRIORS TO ASSESS FOR STABILITY OR PROGRESSION. RIGHT LUNG CLEAR. Assessment and Plan - Diagnosis (1) Acute respiratory failure Qualifiers: Respiratory failure complication: hypoxia Qualified Code(s): J96.01 - Acute respiratory failure with hypoxia Is this a current diagnosis for this admission?: Yes Plan: Significant improvement of respiratory symptoms. Vitals WNL. SPO2 96% on 2 L. Because of acute respiratory distress is multifactorial likely postobstructive pneumonia due to left lung mass, pneumonitis due to chemoradiation complicated by underlying COPD. Day 2 IV antibiotics. Day 2 IV vancomycin. Day 2 IV Zosyn. Day 2 IV steroids. Cultures negative so far. Continue broad-spectrum IV antibiotics, IV steroids, aggressive pulmonary toileting, flutter valve, incentive spirometry, DuoNeb's, supplemental oxygen, PRN BiPAP. Switch to p.o. antibiotics once symptomatic improvement. Possible discharge home if patient is stable. Evaluate for home O2. (2) Hyponatremia Is this a current diagnosis for this admission?: Yes Plan: Improving. Serum sodium 124. Likely SIADH due to underlying lung malignancy and low p.o. intake. TSH WNL. Urine osmolarity 706. . Continue normal saline for now. Monitor for seizures. Limit free water intake. (3) Lung cancer Qualifiers: Laterality: left Lung location: lower lobe of lung Qualified Code(s): C34.32 - Malignant neoplasm of lower lobe, left bronchus or lung Is this a current diagnosis for this admission?: Yes Plan: History of tobacco abuse. Diagnosed a month ago. Left lung cancer. No biopsy results available. See Dr. Walker as outpatient. Oncology on board. Recommendations noted. Outpatient oncology follow-up. (4) Hx of coronary artery disease Is this a current diagnosis for this admission?: Yes Plan: History of CAD with PCI x II stent. Denies any anginal pain. Continue antiplatelets, beta-blockers, statins and Imdur. Outpatient PCP and cardiology follow-up. (5) HTN (hypertension) Is this a current diagnosis for this admission?: Yes Plan: Restart home meds. Adjust meds as needed. (6) Hx: nephrotic syndrome Is this a current diagnosis for this admission?: Yes Plan: History of nephrotic syndrome. No previous history available. As per family he was started on some extremity medication and his proteinuria resolved. Outpatient nephrology follow-up. (7) Hyperlipidemia Is this a current diagnosis for this admission?: Yes Plan: Restart home meds. (8) Former smokeless tobacco use Is this a current diagnosis for this admission?: Yes Plan: Former heavy smoker. Quit a month ago. Will provide NicoDerm patch if required. Encouraged abstinence.
[2019-06-06] MEDS: METOPROLOL TARTRATE 25 MG TABLET PO SCH ×2 (14:53→22:42)
[2019-06-06] MEDS: CLOPIDOGREL BISULFATE 75 MG TABLET PO SCH (14:53)
[2019-06-06 17:18] LABS: ANION GAP 12 (5-19); BLOOD UREA NITROGEN 29 mg/dL (7-20); CARBON DIOXIDE 21 mmol/L (22-30); CHLORIDE 94 mmol/L (98-107); GLUCOSE 158 mg/dL (75-110); POTASSIUM 4.1 mmol/L (3.6-5.0)
[2019-06-06] MEDS ORDERED: ATORVASTATIN CALCIUM 10 MG TABLET PO SCH (22:00)
[2019-06-06] MEDS: VANCOMYCIN HCL 750 MG in DEXTROSE 5%-WATER 250 ML IV SCH (22:42)
[2019-06-06] MEDS: TEMAZEPAM 7.5 MG CAPSULE PO PRN (22:47)
[2019-06-07] MEDS: LEVALBUTEROL HCL NEB 0.63 MG/3 ML AMPUL NEB SCH ×4 (00:32→13:11)
[2019-06-07] MEDS: PIPERACILLIN SODIUM/TAZOBACTAM 4.5 GM in NORMAL SALINE 100 ML IV SCH ×2 (02:19→09:49)
[2019-06-07] MEDS: METHYLPREDNISOLONE INJ 40 MG/1 ML SDV IV SCH ×2 (02:19→09:49)
[2019-06-07 05:18] LABS: HEMATOCRIT 29.9 % (37.9-51.0); MEAN CORPUSCULAR HEMOGLOBIN 29.8 pg (27.0-33.4); MEAN CORPUSCULAR HGB CONC 33.3 g/dL (32.0-36.0); MEAN CORPUSCULAR VOLUME 89 fl (80-97); PLATELET COUNT 222 10^3/uL (150-450); RED BLOOD COUNT 3.35 10^6/uL (4.35-5.55); RED CELL DISTRIBUTION WIDTH 17.2 % (11.5-14.0); WHITE BLOOD COUNT 3.7 10^3/uL (4.0-10.5)
[2019-06-07 05:34] LABS: ALBUMIN 2.3 g/dL (3.5-5.0); ALKALINE PHOSPHATASE 75 U/L (38-126); ANION GAP 12 (5-19); ASPARTATE AMINO TRANSFERASE 29 U/L (17-59); BILIRUBIN,DIRECT 0.7 mg/dL (0.0-0.4); BLOOD UREA NITROGEN 30 mg/dL (7-20); CALCIUM 8.5 mg/dL (8.4-10.2); CARBON DIOXIDE 22 mmol/L (22-30); CHLORIDE 98 mmol/L (98-107); GLUCOSE 134 mg/dL (75-110); POTASSIUM 4.2 mmol/L (3.6-5.0)
[2019-06-07] MEDS: HEPARIN SOD (PORCINE) 5,000 UNIT/ML 1 ML VIAL SUBCUT SCH (06:07)
[2019-06-07] MEDS: PANTOPRAZOLE SODIUM 40 MG TABLET.DR PO SCH (06:08)
[2019-06-07 06:09] LABS: ABSOLUTE LYMPHOCYTES# (MANUAL) 0.4 10^3/uL (0.5-4.7); ABSOLUTE MONOCYTES # (MANUAL) 0.1 10^3/uL (0.1-1.4); ANISOCYTOSIS 1+; BAND NEUTROPHILS % (MANUAL) 1 % (3-5); BASOPHILS % (MANUAL) 0 % (0-2); EOSINOPHILS % (MANUAL) 0 % (0-6); LYMPHOCYTES % (MANUAL) 11 % (13-45); MONOCYTES % (MANUAL) 4 % (3-13); SEGMENTED NEUTROPHILS % (MAN) 83 % (42-78); TOTAL CELLS COUNTED 100
[2019-06-07 06:10] LABS: OVALOCYTES SLIGHT; PLATELET COMMENT ADEQUATE; TEAR DROP CELLS SLIGHT
[2019-06-07] MEDS: NORMAL SALINE 1000 ML 1,000 ML IV PRN (06:11)
[2019-06-07] MEDS: DOCUSATE SODIUM 100 MG CAPSULE PO SCH (09:34)
[2019-06-07] MEDS: METOPROLOL TARTRATE 25 MG TABLET PO SCH (09:50)
[2019-06-07] MEDS: GUAIFENESIN/CODEINE PHOS 100-10 MG/ 5 ML UDC PO SCH (09:50)
[2019-06-07] MEDS: CLOPIDOGREL BISULFATE 75 MG TABLET PO SCH (09:50)
[2019-06-07] MEDS: ASPIRIN 81 MG TABLET, CHEWABLE PO SCH (09:51)
[2019-06-07] MEDS ORDERED: ISOSORBIDE MONONITRATE 30 MG TAB.ER.24H PO SCH (10:00)
[2019-06-07] MEDS: VANCOMYCIN HCL 750 MG in DEXTROSE 5%-WATER 250 ML IV SCH (10:38)
[2019-06-07 11:25] LABS: VANCOMYCIN,TROUGH 9.3 ug/mL (5.0-20.0)
--- NOTE | 2019-06-07 12:04 | RADIOLOGY REPORT (SQ) ---
EXAM DESCRIPTION: CHEST SINGLE VIEW COMPLETED DATE/TIME: 06/07/2019 11:42 am REASON FOR STUDY: reassess lung opacities COMPARISON: AP view of the chest from 06/05/2019. EXAM PARAMETERS: NUMBER OF VIEWS: One view. TECHNIQUE: Single frontal radiographic view of the chest acquired. RADIATION DOSE: NA LIMITATIONS: None. FINDINGS: LUNGS AND PLEURA: Unchanged dense opacity in the left base that obscures the contour of th e left hemidiaphragm and blunts the costophrenic sulcus and is associated with volume loss given the ipsilateral shift of the mediastinal structures. There is no consolidation, pleural effusion or pneu mothorax on the contralateral size. MEDIASTINUM AND HILAR STRUCTURES: Unchanged mediastinal and hilar contours. HEART AND VASCULAR STRUCTURES: The cardiac silhouette is partially obscured. BONES: No acute findings. HARDWARE: None in the chest. OTHER: No other finding. IMPRESSION: Unchanged dense opacity in the left base that obscures the contour of the left hemidiaph ragm and blunts the costophrenic sulcus and is associated with volume loss. TECHNICAL DOCUMENTATION: JOB ID: [id number] [email or web address] All Rights Reserved Reading location - IP/workstation name: [email or web address]
[2019-06-07 12:39] VITALS: BP 138/74
--- NOTE | 2019-06-07 13:59 | PDOC PROGRESS REPORT ---
Subjective Progress Note for:: 06/07/19 Subjective:: Patient reports he is anxious to go home. No complaints. Eating well. Able to walk around in the room without assistance. Reason For Visit: ACUTE RESPIRATORY FAILURE,LUNG CANCER Physical Exam Vital Signs: Temp Pulse Resp BP Pulse Ox 97.5 F 82 18 138/74 H 96 06/07/19 09:34 06/07/19 13:11 06/07/19 13:11 06/07/19 11:50 06/07/19 13:11 Intake & Output 06/06/19 06/07/19 06/08/19 06:59 06:59 06:59 Intake Total 4100 3500 100 Output Total 300 Balance 4100 3200 100 Weight 68 kg 70.8 kg General appearance: PRESENT: well-developed, well-nourished Head exam: PRESENT: normocephalic Respiratory exam: PRESENT: unlabored Neurological exam: PRESENT: alert, awake Psychiatric exam: PRESENT: appropriate affect Skin exam: PRESENT: normal color Results Laboratory Results: 06/07/19 05:00 06/07/19 05:00 06/06/19 06/07/19 06/07/19 16:45 05:00 05:00 WBC 3.7 L RBC 3.35 L Hgb 10.0 L Hct 29.9 L MCV 89 MCH 29.8 MCHC 33.3 RDW 17.2 H Plt Count 222 Seg Neutrophils % Not Reportable Sodium 126.7 L 131.5 L Potassium 4.1 4.2 Chloride 94 L 98 Carbon Dioxide 21 L 22 Anion Gap 12 12 BUN 29 H 30 H Creatinine 0.95 0.96 Est GFR ( Amer) > 60 > 60 Glucose 158 H 134 H Calcium 8.0 L 8.5 Magnesium 2.4 H Total Bilirubin 1.0 AST 29 Alkaline Phosphatase 75 Total Protein 5.0 L Albumin 2.3 L 06/05/19 18:03 Sputum Gram Stain - Final 06/05/19 06/05/19 12:10 12:10 Creatine Kinase 42 L Troponin I < 0.012 Impressions: Chest CT 06/05/19 14:41 IMPRESSION: EXTENSIVE ABNORMALITY ON THE LEFT. VOLUME LOSS. INNUMERABLE NODULES IN THE LEFT UPPER LOBE. EXTENSIVE DENSITY IN THE LEFT LUNG BASE WHICH MAY BE DUE TO A COMBINATION OF MASS, ATELECTASIS, AND/OR PNEUMONIA. NO PRIORS TO ASSESS FOR STABILITY OR PROGRESSION. RIGHT LUNG CLEAR. Chest X-Ray 06/07/19 00:00 IMPRESSION: Unchanged dense opacity in the left base that obscures the contour of the left hemidiaphragm and blunts the costophrenic sulcus and is associated with volume loss. Assessment & Plan - Time Time Spent with patient: Less than 15 minutes - Plan Summary Plan Summary: Ok for discharge from my standpoint. He should continue radiation and chemo appointments as already scheduled as outpatient. Please call with any concerns.
[2019-06-07] MEDS ORDERED: PREDNISONE 20 MG TABLET PO SCH (18:00)
[2019-06-08] MEDS ORDERED: LEVOFLOXACIN 750 MG/D5W RTU 750 MG/150 ML RTUPB IV SCH (10:00)
--- NOTE | 2019-06-08 19:19 | PDOC DISCHARGE SUMMARY ---
Impression - Admit/DC Date/PCP Admission Date/Primary Care Provider: 06/05/19 16:02 GUSTAVO SANCHEZ MD Discharge Date: 06/07/19 - Additional Information Resuscitation Status: Full Code Discharge Diet: Cardiac Discharge Activity: Activity As Tolerated, Balance Activity w/Rest Referrals: GUSTAVO SANCHEZ MD [Primary Care Provider] - 06/08/19 9:45 am REGINA HARDY NP [NO LOCAL MD] - 06/16/19 12:45 pm Prescriptions: Prednisone [Deltasone 10 mg Tablet] 10 mg PO BID 3 Days #6 tablet Levofloxacin [Levaquin 750 mg Tablet] 750 mg PO DAILY 5 Days #5 tab Home Medications: Atorvastatin Calcium [Lipitor 10 mg Tablet] 10 mg PO QHS 06/06/19 Clopidogrel Bisulfate [Plavix 75 mg Tablet] 75 mg PO DAILY 06/06/19 Dexamethasone [Decadron 4 mg Tablet] 4 mg PO DAILY 06/06/19 Hydrocodone/Chlorphen P-Stirex [Hydrocodone-Chlorphen ER Susp] 5 ml PO Q12HP PRN 06/06/19 Isosorbide Mononitrate [Imdur 30 mg Tablet.er] 30 mg PO DAILY 06/06/19 Metoprolol Tartrate [Lopressor 25 mg Tablet] 25 mg PO Q12 06/06/19 Ondansetron [Zofran Odt 4 mg Tablet] 8 mg PO Q8HP PRN MDD filled 05/27 for 10 day supply 06/06/19 Levofloxacin [Levaquin 750 mg Tablet] 750 mg PO DAILY 5 Days #5 tab 06/07/19 Prednisone [Deltasone 10 mg Tablet] 10 mg PO BID 3 Days #6 tablet 06/07/19 History of Present Illiness History of Present Illness: Admitting hospitalist's H&P: EBEN Lucinda CAITIE SR is a 63 year old male past medical history of CAD status post PCI x2 stents, hyperlipidemia, hypertension, nephrotic syndrome, and recently diagnosed lung cancer currently on XRT, last chemo 9 days ago, last radiation last Thursday, presented to ED complaining of worsening shortness of breath, left- sided pleuritic chest pain, fever, chills, nausea, productive cough, severe fatigue. Denies any abdominal pain, vomiting, diarrhea, constipation, or any urinary symptoms. In ED he was found to be tachypneic, tachycardic, with sodium of [address] of left-sided opacification. Hospital Course Hospital Course: This is a 63-year-old male with stage III squamous cell carcinoma of the lung with a left lung mass with endobronchial obstruction. He was admitted for a left-sided pneumonia very likely postobstructive in nature. He was started on IV antibiotics and breathing treatments and steroids as well. He did significantly improve with above treatments. Sputum culture grew Strep. He was able to return to his baseline. He was able to ambulate the hallway on room air with no acute issues, shortness of breath or desaturation. He will continue chemotherapy with his oncologist as outpatient. Discussed with patient and . They understand that his lung cancer is in no comparable and there is a chance this will progress eventually. They verbalized that they are in the process of rediscussing his CODE STATUS and further advanced directive depending on how he would respond to his chemotherapy in the next few months. Patient will be discharged on levofloxacin. Physical Exam Vital Signs: Temp Pulse Resp BP Pulse Ox 97.5 F 77 18 138/74 H 98 06/07/19 14:05 06/07/19 14:05 06/07/19 14:05 06/07/19 14:05 06/07/19 14:05 Intake & Output 06/07/19 06/08/19 06/09/19 06:59 06:59 06:59 Intake Total 3500 100 Output Total 300 Balance 3200 100 Weight 156 lb 1.396 oz General appearance: PRESENT: no acute distress, well-developed, well-nourished Head exam: PRESENT: atraumatic, normocephalic Eye exam: PRESENT: conjunctiva pink, EOMI, PERRLA. ABSENT: scleral icterus Ear exam: PRESENT: normal external ear exam Mouth exam: PRESENT: moist, tongue midline Neck exam: ABSENT: carotid bruit, JVD, lymphadenopathy, thyromegaly Respiratory exam: PRESENT: rhonchi. ABSENT: rales, wheezes Cardiovascular exam: PRESENT: RRR. ABSENT: diastolic murmur, rubs, systolic murmur Pulses: PRESENT: normal dorsalis pedis pul GI/Abdominal exam: PRESENT: normal bowel sounds, soft. ABSENT: distended, guarding, mass, organolmegaly, rebound, tenderness Rectal exam: PRESENT: deferred Extremities exam: PRESENT: full ROM. ABSENT: calf tenderness, clubbing, pedal edema Neurological exam: PRESENT: alert, awake, oriented to person, oriented to place, oriented to time, oriented to situation, CN II-XII grossly intact. ABSENT: motor sensory deficit Results Laboratory Results: WBC 3.7 10^3/uL (4.0-10.5) L 06/07/19 05:00 RBC 3.35 10^6/uL (4.35-5.55) L 06/07/19 05:00 Hgb 10.0 g/dL (13.5-17.0) L 06/07/19 05:00 Hct 29.9 % (37.9-51.0) L 06/07/19 05:00 MCV 89 fl (80-97) 06/07/19 05:00 MCH 29.8 pg (27.0-33.4) 06/07/19 05:00 MCHC 33.3 g/dL (32.0-36.0) 06/07/19 05:00 RDW 17.2 % (11.5-14.0) H 06/07/19 05:00 Plt Count 222 10^3/uL (150-450) 06/07/19 05:00 Lymph % (Auto) Not Reportable 06/07/19 05:00 [place] % (Auto) Not Reportable 06/07/19 05:00 Eos % (Auto) Not Reportable 06/07/19 05:00 Baso % (Auto) Not Reportable 06/07/19 05:00 Absolute Neuts (auto) Not Reportable 06/07/19 05:00 Absolute Lymphs (auto) Not Reportable 06/07/19 05:00 Absolute Monos (auto) Not Reportable 06/07/19 05:00 Absolute Eos (auto) Not Reportable 06/07/19 05:00 Absolute Basos (auto) Not Reportable 06/07/19 05:00 Total Counted 100 06/07/19 05:00 Seg Neutrophils % Not Reportable 06/07/19 05:00 Seg Neuts % (Manual) 83 % (42-78) H 06/07/19 05:00 Band Neutrophils % 1 % (3-5) L 06/07/19 05:00 Lymphocytes % (Manual) 11 % (13-45) L 06/07/19 05:00 Atypical Lymphs % 1 % (0) 06/07/19 05:00 Monocytes % (Manual) 4 % (3-13) 06/07/19 05:00 Eosinophils % (Manual) 0 % (0-6) 06/07/19 05:00 Basophils % (Manual) 0 % (0-2) 06/07/19 05:00 Abs Neuts (Manual) 3.1 10^3/uL (1.7-8.2) 06/07/19 05:00 Abs Lymphs (Manual) 0.4 10^3/uL (0.5-4.7) L 06/07/19 05:00 Abs Monocytes (Manual) 0.1 10^3/uL (0.1-1.4) 06/07/19 05:00 Absolute Eos (Manual) 0.0 10^3/uL (0.0-0.6) 06/07/19 05:00 Abs Basophils (Manual) 0.0 10^3/uL (0.0-0.2) 06/07/19 05:00 Toxic Granulation 1+ 06/05/19 12:10 Toxic Vacuolation PRESENT 06/05/19 12:10 Platelet Comment ADEQUATE 06/07/19 05:00 Hypochromasia 2+ 06/06/19 05:22 Anisocytosis 1+ 06/07/19 05:00 Tear Drop Cells SLIGHT 06/07/19 05:00 Ovalocytes SLIGHT 06/07/19 05:00 PT 14.7 SEC (11.4-15.4) 06/06/19 05:22 INR 1.14 06/06/19 05:22 Carbonic Acid 1.04 mmol/L (1.05-1.35) L 06/06/19 05:50 HCO3/H2CO3 Ratio 20:1 06/06/19 05:50 ABG pH 7.41 (7.35-7.45) 06/06/19 05:50 ABG pCO2 34.6 mmHg (35-45) L 06/06/19 05:50 ABG pO2 79.9 mmHg (80-100) L 06/06/19 05:50 ABG HCO3 21.2 mmol/L (20-24) 06/06/19 05:50 ABG Total CO2 22.3 mmol/L (23-27) L 06/06/19 05:50 ABG O2 Saturation 96.0 % (94-98) 06/06/19 05:50 ABG Base Excess -2.9 mmol/L 06/06/19 05:50 VBG pH 7.44 (7.30-7.42) H 06/05/19 12:10 VBG pCO2 35.9 mmHg (35-63) 06/05/19 12:10 VBG HCO3 23.6 mmol/L (20-32) 06/05/19 12:10 VBG Base Excess 0 mmol/L 06/05/19 12:10 FiO2 ROOM AIR 06/06/19 05:50 Sodium 131.5 mmol/L (137-145) L 06/07/19 05:00 Potassium 4.2 mmol/L (3.6-5.0) 06/07/19 05:00 Chloride 98 mmol/L (98-107) 06/07/19 05:00 Carbon Dioxide 22 mmol/L (22-30) 06/07/19 05:00 Anion Gap 12 (5-19) 06/07/19 05:00 BUN 30 mg/dL (7-20) H 06/07/19 05:00 Creatinine 0.96 mg/dL (0.52-1.25) 06/07/19 05:00 Est GFR ( Amer) > 60 (>60) 06/07/19 05:00 Est GFR (MDRD) Non-Af > 60 (>60) 06/07/19 05:00 Glucose 134 mg/dL (75-110) H 06/07/19 05:00 Lactic Acid 1.7 mmol/L (0.7-2.1) 06/05/19 12:10 Calcium 8.5 mg/dL (8.4-10.2) 06/07/19 05:00 Magnesium 2.4 mg/dL (1.6-2.3) H 06/07/19 05:00 Total Bilirubin 1.0 mg/dL (0.2-1.3) 06/07/19 05:00 Direct Bilirubin 0.7 mg/dL (0.0-0.4) H 06/07/19 05:00 Neonat Total Bilirubin Not Reportable 06/07/19 05:00 Neonat Direct Bilirubin Not Reportable 06/07/19 05:00 Neonat Indirect Bili Not Reportable 06/07/19 05:00 AST 29 U/L (17-59) 06/07/19 05:00 ALT 20 U/L (<50) 06/07/19 05:00 Alkaline Phosphatase 75 U/L (38-126) 06/07/19 05:00 Creatine Kinase 42 U/L (55-170) L 06/05/19 12:10 Troponin I < 0.012 ng/mL 06/05/19 12:10 Total Protein 5.0 g/dL (6.3-8.2) L 06/07/19 05:00 Albumin 2.3 g/dL (3.5-5.0) L 06/07/19 05:00 TSH 0.73 uIU/mL (0.47-4.68) 06/05/19 12:10 Urine Color BENJY 06/05/19 13:56 Urine Appearance SLIGHTLY-CLOUDY 06/05/19 13:56 Urine pH 5.0 (5.0-9.0) 06/05/19 13:56 Ur Specific [place] 1.025 06/05/19 13:56 Urine Protein 100 mg/dL (NEGATIVE) H 06/05/19 13:56 Urine Glucose (UA) NEGATIVE mg/dL (NEGATIVE) 06/05/19 13:56 Urine Ketones TRACE mg/dL (NEGATIVE) H 06/05/19 13:56 Urine Blood MODERATE (NEGATIVE) H 06/05/19 13:56 Urine Nitrite NEGATIVE (NEGATIVE) 06/05/19 13:56 Urine Bilirubin MODERATE (NEGATIVE) H 06/05/19 13:56 Urine Urobilinogen 4.0 mg/dL (<2.0) H 06/05/19 13:56 Ur Leukocyte Esterase NEGATIVE (NEGATIVE) 06/05/19 13:56 Urine WBC (Auto) 3 /HPF 06/05/19 13:56 Urine RBC (Auto) 1 /HPF 06/05/19 13:56 Squamous Epi Cells Auto <1 /HPF 06/05/19 13:56 Urine Mucus (Auto) RARE /LPF 06/05/19 13:56 Urine Osmolality 709 mOsm/kg (300-900) 06/05/19 13:56 Urine Ascorbic Acid NEGATIVE (NEGATIVE) 06/05/19 13:56 Time Trough Drawn 0942 06/07/19 09:42 Vancomycin Trough 9.3 ug/mL (5.0-20.0) 06/07/19 09:42 06/05/19 12:10 Troponin I < 0.012 Impressions: Chest X-Ray 06/05/19 00:00 IMPRESSION: EXTENSIVE DENSITY IN THE LEFT CHEST. DIFFERENTIAL INCLUDES MASS, PNEUMONIA, AND PLEURAL EFFUSION. THERE MAY BE ELEVATION OF THE LEFT HEMIDIAPHRAGM WELL. COMPARISON WITH PRIOR STUDIES WOULD BE EXTREMELY HELPFUL. THE RIGHT LUNG IS CLEAR. Chest CT 06/05/19 14:41 IMPRESSION: EXTENSIVE ABNORMALITY ON THE LEFT. VOLUME LOSS. INNUMERABLE NODULES IN THE LEFT UPPER LOBE. EXTENSIVE DENSITY IN THE LEFT LUNG BASE WHICH MAY BE DUE TO A COMBINATION OF MASS, ATELECTASIS, AND/OR PNEUMONIA. NO PRIORS TO ASSESS FOR STABILITY OR PROGRESSION. RIGHT LUNG CLEAR. Chest X-Ray 06/07/19 00:00 IMPRESSION: Unchanged dense opacity in the left base that obscures the contour of the left hemidiaphragm and blunts the costophrenic sulcus and is associated with volume loss. Stroke Is this a Stroke Patient?: No Acute Heart Failure - Is this a Heart Failure Patient?: No
== END 2019-06-07 14:45 | disposition home health service (06) | DRG 193 ==
LOC: ER 11:29 → EH 16:02 → 3S 17:34
PROVIDERS: ADMIT Internal Medicine; ATTEND Internal Medicine
DX: J13 Pneumonia due to Streptococcus pneumoniae (principal); J96.01 Acute respiratory failure with hypoxia; C34.32 Malignant neoplasm of lower lobe, left bronchus or lung; E87.1 Hypo-osmolality and hyponatremia; J44.1 Chronic obstructive pulmonary disease with (acute) exacerbation; N04.9 Nephrotic syndrome with unspecified morphologic changes; J44.0 Chronic obstructive pulmonary disease with (acute) lower respiratory infection; I25.10 Atherosclerotic heart disease of native coronary artery without angina pectoris; Z95.5 Presence of coronary angioplasty implant and graft; E78.5 Hyperlipidemia, unspecified; I10 Essential (primary) hypertension; Z79.899 Other long term (current) drug therapy; E86.0 Dehydration; F17.210 Nicotine dependence, cigarettes, uncomplicated; Z88.1 Allergy status to other antibiotic agents
CPT/HCPCS: 36415; 71045; 71250; 80048; 80053; 80202; 81001; 82550; 82803; 83605; 83735; 83935; 84443; 84484; 85025; 85610; 87040; 87070; 87077; 87186; 87205; 93005; 93010; 94640; 96361; 96365; 99285; J1644; J2543; J2920; J3370; J3490; J7030; J7050; J7060; J7120; J7121; J7614

== ENCOUNTER 2019-06-08 21:48 | Emergency (ER) | payer MEDICARE ==
[2019-06-08] MEDS ORDERED: HYDROCODONE/ACETAMINOPHEN 5-325 MG TABLET PO ONE (22:25)
--- NOTE | 2019-06-08 22:27 | ER Document Report ---
ED Respiratory Problem - General Chief Complaint: Productive Cough Stated Complaint: COUGHING UP BLOOD/ACTIVE CANCER Time Seen by Provider: 06/08/19 22:15 Notes: Patient is a 63-year-old male that comes emergency department for chief complaint of coughing up blood, shortness of breath, and weakness. He was discharged today from the hospital, he was diagnosed with postobstructive pneumonia secondary to a stage III squamous cell carcinoma that he has received an initial dose of chemotherapy for. He states he was given Levaquin, he is also on Plavix but did not take it this morning, he denies fever/chills. Past medical history also includes CAD with stents x2, hypertension, hyperlipidemia. His oncologist is Dr. Hoang at [facility]. Patient is full code. Family at bedside. TRAVEL OUTSIDE OF THE [place] IN LAST 30 DAYS: No - Related Data Allergies/Adverse Reactions: lisinopril Allergy (Verified 06/08/19 21:49) niacin Allergy (Verified 06/08/19 21:49) Past Medical History - General Information source: Patient, Relative - Social History Smoking Status: Former Smoker Frequency of alcohol use: None Drug Abuse: None Lives with: Family Family History: Reviewed & Not Pertinent Patient has suicidal ideation: No Patient has homicidal ideation: No Pulmonary Medical History: Reports: Hx COPD Malignancy Medical History: Reports Hx Lung Cancer Psychiatric Medical History: Denies: Hx Depression Past Surgical History: Reports: Other - Bronchoscopy with biopsy - Immunizations Immunizations up to date: Yes Hx Diphtheria, Pertussis, Tetanus Vaccination: Yes Review of Systems - Review of Systems Constitutional: No symptoms reported EENT: No symptoms reported Cardiovascular: See HPI Respiratory: See HPI Gastrointestinal: No symptoms reported Genitourinary: No symptoms reported Male Genitourinary: No symptoms reported Musculoskeletal: No symptoms reported Skin: No symptoms reported Hematologic/Lymphatic: No symptoms reported Neurological/Psychological: No symptoms reported Physical Exam - Vital signs Vitals: BP 117/85 06/08/19 21:11 - Notes Notes: GENERAL: Patient appears tired but is not in distress HEAD: Normocephalic, atraumatic. EYES: Pupils equal, round, and reactive to light. Extraocular movements intact. ENT: Oral mucosa moist, tongue midline. Oropharynx unremarkable. Airway patent. Nares patent, no nasal septal hematoma, TM's intact. NECK: Full range of motion. Supple. Trachea midline. LUNGS: Frequent congested cough, decreased breath sounds on the left, no rales or rhonchi. No respiratory distress. HEART: Regular rate and rhythm. No murmur ABDOMEN: Soft, non-tender. Non-distended. Bowel sounds present in all 4 quadrants. GENITOURINARY: Deferred EXTREMITIES: Moves all 4 extremities spontaneously. No edema, normal radial and dorsalis pedis pulses bilaterally. No cyanosis. BACK: no cervical, thoracic, lumbar midline tenderness. No saddle anesthesia, normal distal neurovascular exam. Moves all extremities in full range of motion. NEUROLOGICAL: Alert and oriented x3. Normal speech. Cranial nerves II through XII grossly intact. PSYCH: Normal affect, normal mood. SKIN: Warm, dry, normal turgor. No rashes or lesions noted. Course - Re-evaluation Re-evalutation: Patient with frequent cough my initial evaluation, I did review some recent sputum production, this did have mixed yellow sputum with a small amount of blood. No severe hemoptysis. Patient is not tachycardic, hypoxic, febrile, or hypotensive. Other than his frequent cough his physical exam is generally unremarkable other than patient appearing generally tired. Patient was given Ralph, on reevaluation his cough has ceased, he states he slept for a little while and he feels much improved. Chest x-ray with no significant change from prior showing left-sided area consistent with mass. He had a CAT scan several days ago, he is on Plavix but stopped this morning. EKG nonspecific, troponin negative, CBC does not show significant change including increase in hemoglobin. Hyponatremia unchanged. Coagulation studies unremarkable. I discussed with Dr. Tineo. Discussed possible CTA but because patient just had one based on his presentation he does not feel this is indicated. Most likely patient is bleeding from the tumor or adjacent tumor areas. He recommends Plavix cessation, calling his oncologist in the morning, and strict return precautions if he develops worsening symptoms. Patient and family are very agreeable with this, the request the medication he was given here for his cough because he had good results, they state he has been instructed to hold Plavix for an upcoming bronchoscopy anyway. Stable at time of discharge. - Vital Signs Vital signs: Temp Pulse Resp BP Pulse Ox 97.9 F 82 26 H 143/76 H 92 06/08/19 23:07 06/08/19 21:51 06/09/19 00:01 06/09/19 00:01 06/09/19 00:01 - Laboratory Result Diagrams: 06/08/19 22:50 06/08/19 22:50 Laboratory results interpreted by me: 06/08/19 06/08/19 22:50 22:50 RBC 3.55 L Hgb 10.7 L Hct 31.6 L RDW 16.0 H Seg Neuts % (Manual) 87 H Lymphocytes % (Manual) 6 L Abs Lymphs (Manual) 0.3 L Sodium 132.2 L Chloride 97 L BUN 29 H Direct Bilirubin 0.5 H Total Protein 5.5 L Albumin 2.6 L Discharge - Discharge Clinical Impression: Hemoptysis Condition: Stable Disposition: HOME, SELF-CARE Additional Instructions: Your work-up does not show any concerning change from previously. Stop your Plavix. Call your oncologist in the morning for additional follow-up and management. Take the Ralph to help with pain and cough and also to help with your sleeping, take the stool softener if you do to avoid constipation from this. Return if you worsen including fever, increased difficulty breathing, worsening symptoms including coughing up increasing amounts of blood, or any other concerning or worsening symptoms. Prescriptions: Docusate Sodium [Colace 100 mg Capsule] 100 mg PO ASDIR PRN #30 capsule PRN Reason: Hydrocodone/Acetaminophen [Ralph 5-325 mg Tablet] 1 - 2 tab PO ASDIR PRN #15 tablet PRN Reason:
[2019-06-08 23:18] LABS: HEMATOCRIT 31.6 % (37.9-51.0); HEMOGLOBIN 10.7 g/dL (13.5-17.0); MEAN CORPUSCULAR HEMOGLOBIN 30.1 pg (27.0-33.4); MEAN CORPUSCULAR HGB CONC 33.8 g/dL (32.0-36.0); MEAN CORPUSCULAR VOLUME 89 fl (80-97); PLATELET COUNT 246 10^3/uL (150-450); RED BLOOD COUNT 3.55 10^6/uL (4.35-5.55); WHITE BLOOD COUNT 4.9 10^3/uL (4.0-10.5)
[2019-06-08 23:21] LABS: INTERNATIONAL RATION (INR) 1.09; PROTHROMBIN TIME 14.1 SEC (11.4-15.4)
--- NOTE | 2019-06-08 23:23 | RADIOLOGY REPORT (SQ) ---
EXAM DESCRIPTION: XR CHEST 2 VIEWS COMPLETED DATE/TME: 06/08/2019 22:25 CLINICAL HISTORY: 63 years Male, worsening cough, weakness, hemoptysis COMPARISON: Three days prior, CR and CT. NUMBER OF VIEWS/TECHNIQUE: 2, Frontal, Lateral FINDINGS: Moderate consolidative opacity of the left lower hemithorax. Numerous spiculated nodules of the remaining left lung consistent with CT from three days ago. Mild leftward cardiac silhouette shift-rotation. Adequate lung volume, normal cardiac silhouette size, and intact bony thorax. IMPRESSION: No significant change.
[2019-06-08 23:30] LABS: ALBUMIN 2.6 g/dL (3.5-5.0); ALKALINE PHOSPHATASE 96 U/L (38-126); ANION GAP 7 (5-19); ASPARTATE AMINO TRANSFERASE 29 U/L (17-59); BILIRUBIN,DIRECT 0.5 mg/dL (0.0-0.4); BILIRUBIN,TOTAL 0.8 mg/dL (0.2-1.3); BLOOD UREA NITROGEN 29 mg/dL (7-20); CALCIUM 8.6 mg/dL (8.4-10.2); CARBON DIOXIDE 28 mmol/L (22-30); CHLORIDE 97 mmol/L (98-107); GLUCOSE 101 mg/dL (75-110); POTASSIUM 4.3 mmol/L (3.6-5.0); TOTAL PROTEIN 5.5 g/dL (6.3-8.2)
[2019-06-08 23:36] LABS: ABSOLUTE LYMPHOCYTES# (MANUAL) 0.3 10^3/uL (0.5-4.7); ABSOLUTE MONOCYTES # (MANUAL) 0.2 10^3/uL (0.1-1.4); ANISOCYTOSIS 1+; BAND NEUTROPHILS % (MANUAL) 3 % (3-5); BASOPHILS % (MANUAL) 0 % (0-2); EOSINOPHILS % (MANUAL) 0 % (0-6); LYMPHOCYTES % (MANUAL) 6 % (13-45); MONOCYTES % (MANUAL) 4 % (3-13); PLATELET COMMENT ADEQUATE; SEGMENTED NEUTROPHILS % (MAN) 87 % (42-78); TOTAL CELLS COUNTED 100
[2019-06-09 00:03] VITALS: BP 143/76
[2019-06-09] MEDS ORDERED: HYDROCODONE/ACETAMINOPHEN 5-325 MG (6 TAB/ER DISP) PO PRN (00:30)
--- NOTE | 2019-06-09 20:20 | EKG REPORT ---
SEVERITY:- NORMAL ECG - SINUS RHYTHM : Confirmed by: Tonia Nelson MD 09-Jun-2019 20:19:31
== END 2019-06-09 00:55 | disposition home or self-care (01) ==
LOC: ER 21:48
DX: R04.2 Hemoptysis (principal); R06.02 Shortness of breath; R53.1 Weakness; J44.9 Chronic obstructive pulmonary disease, unspecified; Z85.118 Personal history of other malignant neoplasm of bronchus and lung
CPT/HCPCS: 36415; 85025; 85610; 85730; 80053; 84484; 71046; A9270; 93005; 93010

== ENCOUNTER 2019-06-12 17:39 | Observation (INO) | payer MEDICARE ==
[2019-06-12] MEDS ORDERED: IPRATROPIUM/ALBUTEROL 0.5-2.5 MG/3 ML AMPUL NEB PRN (18:24)
--- NOTE | 2019-06-12 18:33 | ADVANCED CARE ---
- Diagnosis (1) Acute respiratory failure with hypoxia Diagnosis Current: Yes (2) Pneumonia Diagnosis Current: Yes (3) Lung cancer Diagnosis Current: Yes Resuscitation Status: Do Not Resuscitate Discussion: Upon encounter, patient is working. He does complain of shortness of breath. Discussed him and and rest of family on the bedside about him having recurrent postobstructive pneumonia related to the lung cancer. He expresses that he has thought about his CODE STATUS. He verbalizes he does not want any artificial breathing on him nor will he want to be connected to a ventilator. H e also does not want to receive chest compressions or defibrillation if the need arises. We discussed possible transition to hospice or comfort measures depending on how he does. He expresses that he wants to see if he would respond to another course of antibiotics and breathing treatments this time. Patient and family expressed they are amenable to transitioning eventually to hospice or comfort measures if he shows clinical deterioration. He says his , Mattie is his surrogate medical decision maker.
--- NOTE | 2019-06-12 18:33 | PDOC H&P ---
History of Present Illness Admission Date/PCP: 06/12/19 17:39 REGINA HARDY NP Patient complains of: SOB History of Present Illness: EBEN BLOOD SR is a 63 year old male with a past medical history of CAD status post PCI x2 stents, hyperlipidemia, hypertension, nephrotic syndrome and stage III squamous cell carcinoma of the lung with a left lung mass with endobronchial obstruction who was recently admitted for postobstructive pneumonia. Patient was discharged 4 days ago. At that time his chest x-ray showed improvement in was able to do fine and ambulate the hallways on room air. He says that when he got home, he had episode of hemoptysis. He continued to have recurrence of progressive worsening shortness in the past 3 days. He presented to [facility] earlier today and was found to have worsening left-sided postobstructive pneumonia and requested to be admitted to [facility]. Upon encounter, patient is working. He does complain of shortness of breath. Discussed him and and rest of family on the bedside about him having recurrent postobstructive pneumonia related to the lung cancer. He expresses that he has thought about his CODE STATUS. He verbalizes he does not want any artificial breathing on him nor will he want to be connected to a ventilator. He also does not want to receive chest compressions or defibrillation if the need arises. We discussed possible transition to hospice or comfort measures depending on how he does. He expresses that he wants to see if he would respond to another course of antibiotics and breathing treatments first this time. Patient and family expressed they are amenable to transitioning eventually to hospice or comfort measures if he shows clinical deterioration. Past Medical History Pulmonary Medical History: Reports: Chronic Obstructive Pulmonary Disease (COPD) Malignancy Medical History: Reports: Lung Cancer Psychiatric Medical History: Denies: Depression Past Surgical History Past Surgical History: Reports: Other - Bronchoscopy with biopsy Social History Smoking Status: Former Smoker Frequency of Alcohol Use: None Hx Recreational Drug Use: No Drugs: None Hx Prescription Drug Abuse: No Family History Family History: Reviewed & Not Pertinent Parental Family History Reviewed: Yes Children Family History Reviewed: No Sibling(s) Family History Reviewed.: No Medication/Allergy Home Medications: Atorvastatin Calcium [Lipitor 10 mg Tablet] 10 mg PO QHS 06/06/19 Clopidogrel Bisulfate [Plavix 75 mg Tablet] 75 mg PO DAILY 06/06/19 Dexamethasone [Decadron 4 mg Tablet] 4 mg PO [id number] 06/06/19 Hydrocodone/Chlorphen P-Stirex [Hydrocodone-Chlorphen ER Susp] 5 ml PO Q12HP PRN 06/06/19 Isosorbide Mononitrate [Imdur 30 mg Tablet.er] 30 mg PO DAILY 06/06/19 Metoprolol Tartrate [Lopressor 25 mg Tablet] 25 mg PO Q12 MDD NOT FILLED SINCE 04/0406/06/19 Ondansetron [Zofran Odt 4 mg Tablet] 8 mg PO Q8HP PRN 06/06/19 Docusate Sodium [Colace 100 mg Capsule] 100 mg PO DAILYP PRN 06/13/19 Hydrocodone/Acetaminophen [[place] 5-325 mg Tablet] 1 tab PO Q4HP PRN 06/13/19 Levofloxacin [Levaquin 750 mg Tablet] 750 mg PO DAILY MDD 5 DAYS, 06/07/19 06/13/19 Megestrol Acetate 20 ml PO DAILY 06/13/19 Promethazine HCl [Phenergan 25 mg Tablet] 25 mg PO Q4HP PRN 06/13/19 Allergies/Adverse Reactions: lisinopril Allergy (Verified 06/08/19 21:49) niacin Allergy (Verified 06/08/19 21:49) Review of Systems All systems: reviewed and no additional remarkable complaints except as stated - as mentioned in HPI Physical Exam General appearance: PRESENT: no acute distress, well-developed, well-nourished Head exam: PRESENT: atraumatic, normocephalic Eye exam: PRESENT: conjunctiva pink, EOMI, PERRLA. ABSENT: scleral icterus Ear exam: PRESENT: normal external ear exam Mouth exam: PRESENT: moist, tongue midline Neck exam: ABSENT: carotid bruit, JVD, lymphadenopathy, thyromegaly Respiratory exam: PRESENT: rales, rhonchi. ABSENT: wheezes Cardiovascular exam: PRESENT: RRR. ABSENT: diastolic murmur, rubs, systolic murmur Pulses: PRESENT: normal dorsalis pedis pul GI/Abdominal exam: PRESENT: normal bowel sounds, soft. ABSENT: distended, guarding, mass, organolmegaly, rebound, tenderness Rectal exam: PRESENT: deferred Extremities exam: PRESENT: full ROM. ABSENT: calf tenderness, clubbing, pedal edema Neurological exam: PRESENT: alert, awake, oriented to person, oriented to place, oriented to time, oriented to situation, CN II-XII grossly intact. ABSENT: motor sensory deficit Assessment and Plan - Diagnosis (1) Acute respiratory failure with hypoxia Is this a current diagnosis for this admission?: Yes Plan: Secondary to post obstructive pneumonia and Stage III lung cancer. On nasal cannula. (2) Pneumonia Is this a current diagnosis for this admission?: Yes Plan: Start IV Levaquin and breathing treatments. - Time Time Spent with patient: 25-34 minutes
--- NOTE | 2019-06-12 19:17 | RADIOLOGY REPORT (SQ) ---
EXAM DESCRIPTION: CHEST SINGLE VIEW COMPLETED DATE/TIME: 06/12/2019 7:08 pm REASON FOR STUDY: SOB COMPARISON: 06/08/2019 EXAM PARAMETERS: NUMBER OF VIEWS: One view. TECHNIQUE: Single frontal radiographic view of the chest acquired. RADIATION DOSE: NA LIMITATIONS: None. FINDINGS: Increased consolidation of the left lung base and increased volume of left pleural effusio n, now moderate. The right lung is normally aerated. IMPRESSION: Increased consolidation of the left lung base and increased volume of left pleural effus ion, now moderate. The right lung is normally aerated. TECHNICAL DOCUMENTATION: JOB ID: [id number] [employer]- All Rights Reserved Reading location - IP/workstation name: [email or web address]
[2019-06-12] MEDS ORDERED: FUROSEMIDE INJ/PF 20 MG/2 ML SDV IV ONE (20:00)
[2019-06-12] MEDS ORDERED: LEVOFLOXACIN 750 MG/D5W RTU 750 MG/150 ML RTUPB IV ONE (20:00)
[2019-06-12 20:43] LABS: HEMOGLOBIN 9.7 g/dL (13.5-17.0); MEAN CORPUSCULAR HEMOGLOBIN 30.2 pg (27.0-33.4); MEAN CORPUSCULAR HGB CONC 34.7 g/dL (32.0-36.0); MEAN CORPUSCULAR VOLUME 87 fl (80-97); PLATELET COUNT 300 10^3/uL (150-450); RED BLOOD COUNT 3.21 10^6/uL (4.35-5.55); RED CELL DISTRIBUTION WIDTH 16.2 % (11.5-14.0); WHITE BLOOD COUNT 5.6 10^3/uL (4.0-10.5)
[2019-06-12 20:58] LABS: ALBUMIN 2.3 g/dL (3.5-5.0); ALKALINE PHOSPHATASE 70 U/L (38-126); ANION GAP 8 (5-19); ASPARTATE AMINO TRANSFERASE 36 U/L (17-59); BILIRUBIN,DIRECT 0.3 mg/dL (0.0-0.4); BILIRUBIN,TOTAL 0.6 mg/dL (0.2-1.3); BLOOD UREA NITROGEN 24 mg/dL (7-20); CALCIUM 8.1 mg/dL (8.4-10.2); CARBON DIOXIDE 25 mmol/L (22-30); CHLORIDE 96 mmol/L (98-107); GLUCOSE 155 mg/dL (75-110); POTASSIUM 4.1 mmol/L (3.6-5.0); TOTAL PROTEIN 5.3 g/dL (6.3-8.2)
[2019-06-12 21:02] LABS: ABSOLUTE LYMPHOCYTES# (MANUAL) 0.3 10^3/uL (0.5-4.7); ABSOLUTE MONOCYTES # (MANUAL) 0.3 10^3/uL (0.1-1.4); BASOPHILS % (MANUAL) 0 % (0-2); EOSINOPHILS % (MANUAL) 0 % (0-6); LYMPHOCYTES % (MANUAL) 5 % (13-45); MONOCYTES % (MANUAL) 5 % (3-13); SEGMENTED NEUTROPHILS % (MAN) 90 % (42-78); TOTAL CELLS COUNTED 100
[2019-06-12 21:06] LABS: ANISOCYTOSIS 1+
[2019-06-12 21:07] LABS: PLATELET COMMENT ADEQUATE
--- NOTE | 2019-06-12 22:55 | EKG REPORT ---
SEVERITY:- NORMAL ECG - SINUS RHYTHM : Confirmed by: Tonia Nelson MD 12-Jun-2019 22:55:06
[2019-06-13] MEDS ORDERED: FUROSEMIDE INJ/PF 20 MG/2 ML SDV IV SCH (10:00)
--- NOTE | 2019-06-13 13:35 | PDOC PROGRESS REPORT ---
Subjective Progress Note for:: 06/13/19 Subjective:: EBEN BLODO SR is a 63 year old male with a past medical history of CAD status post PCI x2 stents, hyperlipidemia, hypertension, nephrotic syndrome and stage III squamous cell carcinoma of the lung with a left lung mass with endobronchial obstruction who was recently admitted for postobstructive pneumonia. He was admitted after being transferred from [facility] ER for worsening left-sided postobstructive pneumonia. No acute event overnight. Upon encounter, he saturating well on nasal cannula. He still says he is short of breath. He also complains of dysphagia in the past few days. He also reported he started having bipedal swelling after he was st arted on Decadron. Reason For Visit: ACUTE HYPOXIA RESPIRATORY FAILUTE,POST OBSTRUCTIVE Physical Exam Vital Signs: Temp Pulse Resp BP Pulse Ox 97.6 F 78 16 122/62 97 06/13/19 12:00 06/13/19 12:00 06/13/19 12:00 06/13/19 12:00 06/13/19 12:00 Intake & Output 06/12/19 06/13/19 06/14/19 06:59 06:59 06:59 Intake Total 270 Output Total 1 Balance -1 270 Weight 141 lb 5.061 oz General appearance: PRESENT: no acute distress, well-developed, well-nourished Head exam: PRESENT: atraumatic, normocephalic Eye exam: PRESENT: conjunctiva pink, EOMI, PERRLA. ABSENT: scleral icterus Ear exam: PRESENT: normal external ear exam Mouth exam: PRESENT: moist, tongue midline Neck exam: ABSENT: carotid bruit, JVD, lymphadenopathy, thyromegaly Respiratory exam: PRESENT: decreased breath sounds, rhonchi. ABSENT: rales, wheezes Cardiovascular exam: PRESENT: RRR. ABSENT: diastolic murmur, rubs, systolic murmur Pulses: PRESENT: normal dorsalis pedis pul GI/Abdominal exam: PRESENT: normal bowel sounds, soft. ABSENT: distended, guarding, mass, organolmegaly, rebound, tenderness Rectal exam: PRESENT: deferred Extremities exam: PRESENT: full ROM. ABSENT: calf tenderness, clubbing, pedal edema Neurological exam: PRESENT: alert, awake, oriented to person, oriented to place, oriented to time, oriented to situation, CN II-XII grossly intact. ABSENT: motor sensory deficit Results Laboratory Results: 06/12/19 20:25 06/12/19 20:25 06/12/19 06/12/19 20:25 20:25 WBC 5.6 RBC 3.21 L Hgb 9.7 L Hct 28.0 L MCV 87 MCH 30.2 MCHC 34.7 RDW 16.2 H Plt Count 300 Seg Neutrophils % Not Reportable Sodium 129.3 L Potassium 4.1 Chloride 96 L Carbon Dioxide 25 Anion Gap 8 BUN 24 H Creatinine 0.72 Est GFR ( Amer) > 60 Glucose 155 H Calcium 8.1 L Total Bilirubin 0.6 AST 36 Alkaline Phosphatase 70 Total Protein 5.3 L Albumin 2.3 L Impressions: Chest X-Ray 06/12/19 00:00 IMPRESSION: Increased consolidation of the left lung base and increased volume of left pleural effusion, now moderate. The right lung is normally aerated. Assessment and Plan - Diagnosis (1) Acute respiratory failure with hypoxia Is this a current diagnosis for this admission?: Yes Plan: Secondary to post obstructive pneumonia and Stage III lung cancer. On nasal c annula. 06/13: Continue IV antibiotics and breathing treatments. Will rule out PE as well. (2) Pneumonia Is this a current diagnosis for this admission?: Yes Plan: Continue IV Levaquin and breathing treatments. (3) Lung cancer Qualifiers: Laterality: left Lung location: lower lobe of lung Qualified Code(s): C34.32 - Malignant neoplasm of lower lobe, left bronchus or lung Is this a current diagnosis for this admission?: Yes (4) Dysphagia Is this a current diagnosis for this admission?: Yes Plan: Speech therapy consulted. Will pursue an MBS.
--- NOTE | 2019-06-13 17:24 | RADIOLOGY REPORT (SQ) ---
EXAM DESCRIPTION: CTA CHEST COMPLETED DATE/TIME: 06/13/2019 4:56 pm REASON FOR STUDY: hypoxia, r/o PE COMPARISON: 06/05/2019 TECHNIQUE: CT scan of the chest performed using helical scanning technique with dynamic intravenous contrast injection. Images reviewed with lung, soft tissue and bone windows. Reconstructed coronal and sagittal MPR images reviewed. Additional 3 dimensional post-processing performed to develop Maximal Intensity Projection images (WI P). All images stored on PACS. All CT scanners at this facility use dose modulation, iterative reconstruction, and/or weight based d osing when appropriate to reduce radiation dose to as low as reasonably achievable (ALARA). [facility]: Dose Right [facility]: CareDose [facility]: Dose Right [facility]: Teradose 4D [facility]: [employer] CONTRAST TYPE AND DOSE: 52 mL Omnipaque 350- low osmolar. Contrast bolus adequate for pulmonary arteries and aorta. RENAL FUNCTION: BUN 24 creatinine 0.72 RADIATION DOSE: . LIMITATIONS: None. FINDINGS: LUNGS AND PLEURA: Extensive somewhat spiculated nodularity in the left lung. There is imp rovement. There is marked airspace disease in the left lower lobe and lingula. Air bronchograms are present. There is overall decreased volume the left lung compared to the right. There is masslike opacification in the medial aspect of the left lower lobe in association with the left hilum. AORTA AND GREAT VESSELS: No aneurysm. No dissection. HEART: No pericardial effusion. Moderate to marked coronary artery calcifications. PULMONARY ARTERIES: No emboli visualized in the main pulmonary arteries or the segmental branches. HILAR AND MEDIASTINAL STRUCTURES: There is 38 mm masslike density associated with the mediastinum and left hilum. HARDWARE: None in the chest. UPPER ABDOMEN: Cholelithiasis. THYROID AND OTHER SOFT TISSUES: No masses. No adenopathy. BONES: No acute or significant finding. 3D MIPS: Confirm above findings. OTHER: No other significant finding. IMPRESSION: 1. There is no aortic aneurysm or dissection. There is no pulmonary embolus. 2. There is reduced volume in the left lung. There is spiculated nodularity that is fairly extensiv e but that does show some improvement. It is possible that this is infectious/inflammatory. 3. There is masslike density in associated with the mediastinum and left hilum. Recommend PET-CT. 4. Extensive airspace disease in the left lower lobe, atelectasis versus pneumonia. COMMENT: Quality ID # [id number]: Final reports with documentation of one or more dose reduction techniques (e.g., Automated exposure control, adjustment of the mA and/or kV according to patient size, use of iterative reconstruction technique) TECHNICAL DOCUMENTATION: JOB ID: [id number] [employer]- All Rights Reserved Reading location - IP/workstation name: [email or web address]
[2019-06-13] MEDS: MORPHINE SULFATE 10 MG/ML INJ IV PRN (20:18)
[2019-06-13] MEDS: LEVOFLOXACIN 750 MG/D5W RTU 750 MG/150 ML RTUPB IV SCH (22:08)
[2019-06-14] MEDS: MORPHINE SULFATE 10 MG/ML INJ IV PRN ×2 (07:41→19:44)
--- NOTE | 2019-06-14 08:02 | PDOC CONSULTATION ---
Consultation Consult Date: 06/14/19 Attending physician:: LOVELY THURSTON Provider Consulted: GUSTAVO SANCHEZ Consult reason:: Patient with known history of stage III lung cancer here with chest pain as well as difficulty swallowing History of Present Illness Admission Date/PCP: 06/12/19 17:39 REGINA HARDY NP Patient complains of: Chest pain, shortness of breath, difficulty swallowing History of Present Illness: EBEN BLOOD SR is a 63 year old male who was recently admitted with pneumonia and sepsis, COPD exacerbation, presents back with complaint of chest pain, had CTA of the chest which did not show any evidence of PE, malignancy was noted as previous, I reviewed some imaging of the cancer itself and per my view nothing looks worse, there may be some improvement. But he only had a very short course of therapy as well. We saw him last week after discharge from the previous admission and he was doing a little bit better but had a lot of lower extremity edema. Apparently on Thursday patient had acute onset of chest pain and was brought to the ED. The other issues yesterday he tried to eat a little something and as he swallowed he had inability to take the food down the esophagus. It came right back up. So today's plan for a barium swallow to evaluate that. We discussed the possibility of mucositis causing that or stricture that may be related to the chemoradiation although it would be early in the course for these things to happen. Past Medical History Pulmonary Medical History: Reports: Chronic Obstructive Pulmonary Disease (COPD) Malignancy Medical History: Reports: Lung Cancer Psychiatric Medical History: Denies: Depression Past Surgical History Past Surgical History: Reports: Other - Bronchoscopy with biopsy Social History Information Source: Patient Smoking Status: Former Smoker Frequency of Alcohol Use: None Hx Recreational Drug Use: No Drugs: None Hx Prescription Drug Abuse: No - Advance Directive Resuscitation Status: Do Not Resuscitate Family History Family History: Reviewed & Not Pertinent Parental Family History Reviewed: Yes Children Family History Reviewed: Yes Sibling(s) Family History Reviewed.: Yes Medication/Allergy Home Medications: Atorvastatin Calcium [Lipitor 10 mg Tablet] 10 mg PO QHS 06/06/19 Clopidogrel Bisulfate [Plavix 75 mg Tablet] 75 mg PO DAILY 06/06/19 Dexamethasone [Decadron 4 mg Tablet] 4 mg PO [id number] 06/06/19 Hydrocodone/Chlorphen P-Stirex [Hydrocodone-Chlorphen ER Susp] 5 ml PO Q12HP PRN 06/06/19 Isosorbide Mononitrate [Imdur 30 mg Tablet.er] 30 mg PO DAILY 06/06/19 Metoprolol Tartrate [Lopressor 25 mg Tablet] 25 mg PO Q12 MDD NOT FILLED SINCE 04/0406/06/19 Ondansetron [Zofran Odt 4 mg Tablet] 8 mg PO Q8HP PRN 06/06/19 Docusate Sodium [Colace 100 mg Capsule] 100 mg PO DAILYP PRN 06/13/19 Hydrocodone/Acetaminophen [[place] 5-325 mg Tablet] 1 tab PO Q4HP PRN 06/13/19 Levofloxacin [Levaquin 750 mg Tablet] 750 mg PO DAILY MDD 5 DAYS, 06/07/19 1 Megestrol Acetate 20 ml PO DAILY 06/13/19 Promethazine HCl [Phenergan 25 mg Tablet] 25 mg PO Q4HP PRN 06/13/19 Allergies/Adverse Reactions: lisinopril Allergy (Verified 06/08/19 21:49) niacin Allergy (Verified 06/08/19 21:49) Review of Systems Constitutional: ABSENT: chills, fever(s), headache(s), weight gain, weight loss Eyes: ABSENT: visual disturbances Ears: ABSENT: hearing changes Cardiovascular: ABSENT: chest pain, dyspnea on exertion, edema, orthropnea, palpitations Respiratory: ABSENT: cough, hemoptysis Gastrointestinal: ABSENT: abdominal pain, constipation, diarrhea, hematemesis, hematochezia, nausea, vomiting Genitourinary: ABSENT: dysuria, hematuria Musculoskeletal: ABSENT: joint swelling Integumentary: ABSENT: rash, wounds Neurological: ABSENT: abnormal gait, abnormal speech, confusion, dizziness, focal weakness, syncope Psychiatric: ABSENT: anxiety, depression, homidical ideation, suicidal ideation Endocrine: ABSENT: cold intolerance, heat intolerance, polydipsia, polyuria Hematologic/Lymphatic: ABSENT: easy bleeding, easy bruising Physical Exam Vital Signs: Temp Pulse Resp BP Pulse Ox 97.8 F 80 17 114/53 L 93 06/13/19 20:09 06/14/19 02:00 06/13/19 20:09 06/13/19 20:09 06/13/19 20:09 Intake & Output 1006/14/19 06/15/19 06:59 06:59 06:59 Intake Total 660 Output Total 1 Balance -1 660 Weight 64.1 kg General appearance: PRESENT: no acute distress, well-developed, well-nourished Head exam: PRESENT: atraumatic, normocephalic Eye exam: PRESENT: conjunctiva pink, EOMI, PERRLA. ABSENT: scleral icterus Ear exam: PRESENT: normal external ear exam Mouth exam: PRESENT: moist, tongue midline Neck exam: ABSENT: carotid bruit, JVD, lymphadenopathy, thyromegaly Respiratory exam: PRESENT: clear to auscultation dianne. ABSENT: rales, rhonchi, wheezes Cardiovascular exam: PRESENT: RRR. ABSENT: diastolic murmur, rubs, systolic murmur Pulses: PRESENT: normal dorsalis pedis pul Vascular exam: PRESENT: normal capillary refill GI/Abdominal exam: PRESENT: normal bowel sounds, soft. ABSENT: distended, guarding, mass, organolmegaly, rebound, tenderness Rectal exam: PRESENT: deferred Extremities exam: PRESENT: full ROM. ABSENT: calf tenderness, clubbing, pedal edema Neurological exam: PRESENT: alert, awake, oriented to person, oriented to place, oriented to time, oriented to situation, CN II-XII grossly intact. ABSENT: motor sensory deficit Psychiatric exam: PRESENT: appropriate affect, normal mood. ABSENT: homicidal ideation, suicidal ideation Skin exam: PRESENT: dry, intact, warm. ABSENT: cyanosis, rash Results Laboratory Results: 06/12/19 20:25 06/12/19 20:25 Impressions: Chest X-Ray 06/12/19 00:00 IMPRESSION: Increased consolidation of the left lung base and increased volume of left pleural effusion, now moderate. The right lung is normally aerated. Chest/Abdomen CTA 06/13/19 10:32 IMPRESSION: 1. There is no aortic aneurysm or dissection. There is no pulmonary embolus. 2. There is reduced volume in the left lung. There is spiculated nodularity that is fairly extensive but that does show some improvement. It is possible that this is infectious/inflammatory. 3. There is masslike density in associated with the mediastinum and left hilum. Recommend PET-CT. 4. Extensive airspace disease in the left lower lobe, atelectasis versus pneumonia. Status: Image reviewed by me Assessment & Plan - Diagnosis (1) Dysphagia Qualifiers: Dysphagia type: oropharyngeal phase Qualified Code(s): R13.12 - Dysphagia, oropharyngeal phase Is this a current diagnosis for this admission?: Yes Plan: Agree with barium swallow, if this is unrevealing then I think endoscopy would be in order. I did not see evidence of mucositis or thrush on physical exam but it could be lower in the throat that this is happening. (2) Lung cancer Qualifiers: Laterality: left Lung location: lower lobe of lung Qualified Code(s): C34.32 - Malignant neoplasm of lower lobe, left bronchus or lung Is this a current diagnosis for this admission?: Yes Plan: Stage III lung cancer, he had a lot of difficulty with one single dose of low- dose chemotherapy, immunotherapy may be an option for him. But we are going to give him some time to recover to make that decision. I do not think he is hospice appropriate yet until we have further investigation on the dysphasia, because I believe if he is able to eat and drink for a few weeks he may be able to improve to the point of possibly receiving treatment. - Time Time Spent: Greater than 70 Minutes - Inpatient Certification Based on my medical assessment, after consideration of the patient's comorbidities, presenting symptoms, or acuity I expect that the services needed warrant INPATIENT care.: Yes I certify that my determination is in accordance with my understanding of Medicare's requirements for reasonable and necessary INPATIENT services [42 CFR 412.3e].: Yes Medical Necessity: Need For Continuous Telemetry Monitoring, Need for Nebulizer Therapy and Monitoring of Response, Need for Pain Control, Risk of Complication if Not Cared For in Hospital
[2019-06-14] MEDS ORDERED: DOCUSATE SODIUM 100 MG CAPSULE PO PRN (09:34)
[2019-06-14] MEDS ORDERED: HYDROCODONE PO PRN (09:34)
[2019-06-14] MEDS ORDERED: CHLORPHEN P STIREX PO PRN (09:34)
[2019-06-14] MEDS ORDERED: HYDROCODONE/ACETAMINOPHEN 5-325 MG TABLET PO PRN (09:34)
[2019-06-14] MEDS ORDERED: DEXTROSE 10%-WATER 1,000 ML IV PRN (09:34)
[2019-06-14] MEDS ORDERED: [UNRECOGNIZED DRUG - OTHER] PO PRN (09:34)
[2019-06-14] MEDS ORDERED: DEXTROSE 40% GEL 15 GM TUBE PO PRN ×2 (09:35)
[2019-06-14] MEDS ORDERED: HYDRALAZINE HCL INJ/PF 20 MG/1 ML SDV IV PRN (09:35)
[2019-06-14] MEDS ORDERED: DEXTROSE 50%-WATER 25 GM/50 ML DISP.SYRIN IV PRN ×2 (09:35)
[2019-06-14] MEDS ORDERED: GLUCAGON,HUMAN RECOMB 1 MG INJ IM PRN (09:35)
--- NOTE | 2019-06-14 09:53 | RADIOLOGY REPORT (SQ) ---
EXAM DESCRIPTION: COOKIE SWALLOW COMPLETED DATE/TIME: 06/14/2019 9:27 am REASON FOR STUDY: coughing with all PO lung cancer COMPARISON: CTA chest 06/13/2019 TECHNIQUE: Videofluoroscopic swallowing examination was performed in conjunction with speech patholo gy. Videofluoroscopic imaging was obtained and reviewed and these are the findings: RADIATION DOSE: 1 minutes 5 seconds of fluoroscopy was used. 2 images saved to PACS. LIMITATIONS: None FINDINGS: The patient was brought into the fluoro room and placed upright on a modified barium swall ow chair. The patient was then given multiple consistencies mixed with barium to swallow under live fluoroscopic video guidance. According to the Speech Pathologist there was no penetration or aspirat ion. 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 This does correlate to a left hilar cavitary lesion on CTA of the chest from 06/13/2019. IMPRESSION: NO EVIDENCE OF PENETRATION OR ASPIRATION. 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 PLEASE SEE SPEECH PATHOLOGIST REPORT FOR OTHER FINDINGS AND RECOMMENDATIONS. COMMENT: Quality ID [id number]: Final reports for procedures using fluoroscopy that document radiation exp osure indices, or exposure time and number of fluorographic images (if radiation exposure indices are not available) TECHNICAL DOCUMENTATION: JOB ID: [id number] [employer]- All Rights Reserved Reading location - IP/workstation name: [email or web address]
[2019-06-14] MEDS ORDERED: (PENDING PHARMACY ID) (Megestrol Acetate [Megestrol Acetate] 20 ML) PO SCH (10:00)
[2019-06-14] MEDS ORDERED: CLOPIDOGREL BISULFATE 75 MG TABLET PO SCH (10:00)
[2019-06-14] MEDS ORDERED: METOPROLOL TARTRATE 25 MG TABLET PO SCH (10:00)
[2019-06-14] MEDS ORDERED: ISOSORBIDE MONONITRATE 30 MG TAB.ER.24H PO SCH (10:00)
--- NOTE | 2019-06-14 10:57 | ST Inp Modified Barium Swallow ---
Medical Diagnosis - Medical Diagnoses Medical Diagnosis Description & ICD-10 Code(s): acute respiratory failure with hypoxia - ICD-10 Tx Diagnosis Coding (1) Dysphagia ICD-10 Code(s): R13.10 - DYSPHAGIA, UNSPECIFIED ST Inpatient MBS - General Date: 06/14/19 Date of Onset: 06/10/19 - History -: Medical - per EMR: patient admitted 06/12 with shortness of breath. Prior medical history includes CAD, hyperlipidemia, hypertension, nephrotic syndrome, stage 3 squamous cell carcinoma of lung with left lung mass and endobronchial obstruction, post-obstruction pneumonia. Patient reports difficulty swallowing for about 3 days, stating that "things come back up, I get strangled on everything". Patient is on clear liquid diet due to this. Prior to this, patient was on regular diet with no other history of swallowing deficits. At bedside on 06/13, patient seen to have strong, immediate cough after ice chip trial, which expelled what appeared to be thick secretions. MBSS recommended at that time. Medications: Medications Reviewed Allergies: Refer to medical record - Subjective Current Nutritional Means: PO - patient on clear liquid diet Current Symptoms: Poor intake, Coughing Pain: Patient reports, 0/5 - Objective Assessment: Upright, Left Lateral, A-P Position - Food Trials Food Trials Used: Thin liquids, [place] thick liquids - Assessment Labial Function: Within Normal Limits Lingual Function: Within Normal Limits Mandibular Function: Within Normal Limits Velo-Pharyngeal Function: Unremarkable Laryngeal Function: clear voicing - Pharyngeal Stage Pahryngeal Stage Comments: Patient seen to have timely swallow with efficient pharyngeal musculature movement, no aspiration or penetration seen. After the swallow, patient was seen to cough up thick secretions and what appeared to be barium. - Esophageal Stage Esophageal Stage Comments: In A/P view, abnormality seen in lower esophagus. Possible leakage of barium from esophagus. This leakage may then be entering lungs. - Impression/Summary Patient Presents With: Esophageal stage dysph. - Recommendations NPO: yes Dysphagia Therapy with PATIENT CARE SPECIALIST: No - swallowing deficits are outside the scope of speech pathology. Other Recommendations: Defering diet/nutritional recommendations to medical team due ot nature of swallowing disorder, however, patient will likely need to be NPO. Patient demonstrates pharyngeal competency for PO, however, esophageal deficits/leakage appears to significantly impact swallow safety. - Time Total Time: 30 Total Timed Minutes: 30
[2019-06-14] MEDS ORDERED: MEGESTROL ACETATE SUSP 400 MG/10 ML UDCUP PO SCH (11:00)
[2019-06-14] MEDS: INSULIN LISPRO 100 UNIT/ML 3 ML VIAL SUBCUT SCH ×3 (12:39→21:36)
[2019-06-14] MEDS: DEXTROSE 5%-NORMAL SALINE 1,000 ML IV PRN (13:19)
--- NOTE | 2019-06-14 14:04 | PDOC PROGRESS REPORT ---
Subjective Progress Note for:: 06/14/19 Subjective:: EBEN BLOOD SR is a 63 year old male who was recently admitted with pneumonia and sepsis, COPD exacerbation, presents back with complaint of chest pain, had CTA of the chest which did not show any evidence of PE, malignancy was noted as previous, I reviewed some imaging of the cancer itself and per my view nothing looks worse, there may be some improvement. But he only had a very short course of therapy as well. We saw him last week after discharge from the previous admission and he was doing a little bit better but had a lot of lower extremity edema. Apparently on Thursday patient had acute onset of chest pain and was brought to the ED. The other issues yesterday he tried to eat a little something and as he swallowed he had inability to take the food down the esophagus. It came right back up. So today's plan for a barium swallow to evaluate that. We discussed the possibility of mucositis causing that or stricture that may be related to the chemoradiation although it would be early in the course for these things to happen. 06/14/2019. 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 Otherwise patient is no acute distress, on room air, vitals WNL, denies any fever, chills, nausea, chest pain, shortness of breath, abdominal pain, diarrhea, constipation or any urinary symptoms. Reason For Visit: ACUTE HYPOXIA RESPIRATORY FAILUTE,POST OBSTRUCTIVE Physical Exam Vital Signs: Temp Pulse Resp BP Pulse Ox 98.2 F 81 16 116/60 94 06/14/19 11:53 06/14/19 11:53 06/14/19 11:53 06/14/19 11:53 06/14/19 11:53 Intake & Output 06/13/19 06/14/19 06/15/19 06:59 06:59 06:59 Intake Total 660 Output Total 1 Balance -1 660 Weight 64.1 kg General appearance: PRESENT: no acute distress, well-developed, well-nourished Head exam: PRESENT: atraumatic, normocephalic Eye exam: PRESENT: conjunctiva pink, EOMI, PERRLA. ABSENT: scleral icterus Ear exam: PRESENT: normal external ear exam Mouth exam: PRESENT: moist, tongue midline Neck exam: ABSENT: carotid bruit, JVD, lymphadenopathy, thyromegaly Respiratory exam: PRESENT: decreased breath sounds - Left side.. ABSENT: rales, rhonchi, wheezes Cardiovascular exam: PRESENT: RRR. ABSENT: diastolic murmur, rubs, systolic murmur Pulses: PRESENT: normal dorsalis pedis pul Vascular exam: PRESENT: normal capillary refill GI/Abdominal exam: PRESENT: normal bowel sounds, soft. ABSENT: distended, guarding, mass, organolmegaly, rebound, tenderness Rectal exam: PRESENT: deferred Extremities exam: PRESENT: full ROM. ABSENT: calf tenderness, clubbing, pedal edema Neurological exam: PRESENT: alert, awake, oriented to person, oriented to place, oriented to time, oriented to situation, CN II-XII grossly intact. ABSENT: motor sensory deficit Psychiatric exam: PRESENT: appropriate affect, normal mood. ABSENT: homicidal ideation, suicidal ideation Skin exam: PRESENT: dry, intact, warm. ABSENT: cyanosis, rash Results Laboratory Results: 06/12/19 20:25 06/12/19 20:25 Impressions: Chest X-Ray 06/12/19 00:00 IMPRESSION: Increased consolidation of the left lung base and increased volume of left pleural effusion, now moderate. The right lung is normally aerated. Chest/Abdomen CTA 06/13/19 10:32 IMPRESSION: 1. There is no aortic aneurysm or dissection. There is no pulmonary embolus. 2. There is reduced volume in the left lung. There is spiculated nodularity that is fairly extensive but that does show some improvement. It is possible that this is infectious/inflammatory. 3. There is masslike density in associated with the mediastinum and left hilum. Recommend PET-CT. 4. Extensive airspace disease in the left lower lobe, atelectasis versus pneumonia. Modified Barium Swallow 06/14/19 00:00 IMPRESSION: NO EVIDENCE OF PENETRATION OR ASPIRATION. 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 PLEASE SEE SPEECH PATHOLOGIST REPORT FOR OTHER FINDINGS AND RECOMMENDATIONS. Assessment and Plan - Diagnosis (1) Dysphagia Qualifiers: Dysphagia type: esophageal phase Qualified Code(s): R13.10 - Dysphagia, unspecified Is this a current diagnosis for this admission?: Yes Plan: Dysphagia to solids and liquids. Possibly complication of stage III cancer. Modified barium swallow positive for fistula between the pelvis and left hilum. Patient pending transfer to [facility] for possible stent placement by thoracic surgeon. Dr Walker has talked to Dr Kirt Alvarez at [facility] who has graciously accepted the patient for possible stent placement. I have talked with Dr Ruddy Gaytan Hospitalist at [facility] who has graciously accepted the patient under his care. Speech therapy consulted, has signed off at this point as the cause of dysphagia is due to esophageal phase. Continue n.p.o. to avoid aspiration pneumonitis, D5W NS. Switch p.o. medication to IV if possible. Pending transfer to [facility]. (2) Acute respiratory failure with hypoxia Is this a current diagnosis for this admission?: Yes Plan: Secondary to persistent to post obstructive pneumonia/pneumonitis gated by stage III lung cancer. 06/13/2018. CTA negative for any PE, persistent left lung mass with left flank is volume. 06/14/2018. 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 Continue pelvic antibiotics, supplemental oxygen, duo nebs, pulmonary toileting, incentive spirometry. (3) HTN (hypertension) Qualifiers: Hypertension type: essential hypertension Qualified Code(s): I10 - Essential (primary) hypertension Is this a current diagnosis for this admission?: Yes Plan: Normotensive. Euvolemic. Home meds are metoprolol 25 mg p.o. twice daily, and a 30 mg p.o. daily. Restart home meds. If p.o. intolerant can give PRN IV hydralazine and PRN IV metoprolol. Adjust meds as needed. Outpatient PCP follow-up. (4) Hx of coronary artery disease Is this a current diagnosis for this admission?: Yes Plan: Denies any anginal pain. Continue antiplatelets, beta-blockers, statins. Outpatient PCP follow-up. 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 Continue cautious IV NS, guided by volume status. Monitor for seizures. Sodium level tomorrow. (7) Lung cancer Qualifiers: Laterality: left Lung location: lower lobe of lung Qualified Code(s): C34.32 - Malignant neoplasm of lower lobe, left bronchus or lung Is this a current diagnosis for this admission?: Yes Plan: Stage III lung cancer, status post [address] Walker as outpatient. Currently chemotherapy on hold due to complications. Outpatient oncology follow-up. 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 Day 3 IV antibiotics. Day 3 IV levofloxacin. Cultures negative so far. Continue empiric IV antibiotics. Follow-up cultures.
[2019-06-14] MEDS: LEVOFLOXACIN 750 MG/D5W RTU 750 MG/150 ML RTUPB IV SCH (21:38)
[2019-06-14] MEDS ORDERED: ATORVASTATIN CALCIUM 10 MG TABLET PO SCH (22:00)
[2019-06-15] MEDS: DEXTROSE 5%-NORMAL SALINE 1,000 ML IV PRN ×2 (01:03→14:10)
[2019-06-15 07:22] LABS: HEMATOCRIT 29.4 % (37.9-51.0); HEMOGLOBIN 10.1 g/dL (13.5-17.0); MEAN CORPUSCULAR HEMOGLOBIN 29.7 pg (27.0-33.4); MEAN CORPUSCULAR HGB CONC 34.3 g/dL (32.0-36.0); MEAN CORPUSCULAR VOLUME 87 fl (80-97); PLATELET COUNT 331 10^3/uL (150-450); RED CELL DISTRIBUTION WIDTH 15.5 % (11.5-14.0); WHITE BLOOD COUNT 9.9 10^3/uL (4.0-10.5)
[2019-06-15] MEDS ORDERED: LORAZEPAM INJ 2 MG/1 ML VIAL IV PRN (07:32)
[2019-06-15 07:44] LABS: ALBUMIN 2.6 g/dL (3.5-5.0); ALKALINE PHOSPHATASE 68 U/L (38-126); ANION GAP 10 (5-19); ASPARTATE AMINO TRANSFERASE 23 U/L (17-59); BILIRUBIN,DIRECT 0.3 mg/dL (0.0-0.4); BILIRUBIN,TOTAL 0.8 mg/dL (0.2-1.3); BLOOD UREA NITROGEN 20 mg/dL (7-20); CALCIUM 8.1 mg/dL (8.4-10.2); CARBON DIOXIDE 24 mmol/L (22-30); CHLORIDE 98 mmol/L (98-107); GLUCOSE 112 mg/dL (75-110); POTASSIUM 3.7 mmol/L (3.6-5.0)
[2019-06-15] MEDS ORDERED: DEXAMETHASONE 4 MG TABLET PO SCH (08:00)
--- NOTE | 2019-06-15 08:07 | PDOC PROGRESS REPORT ---
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 Pt would be interventional candidate for stent placement, accepted for transfer to [place], still having pain, anxiety and resp difficulty, helped by morphine and ativan. I changed dosing today. Also had long discussion about goals of therapy and next steps of care. Spent 45 min in discussion/coordination of care Reason For Visit: ACUTE HYPOXIA RESPIRATORY FAILUTE,POST OBSTRUCTIVE Physical Exam Vital Signs: Temp Pulse Resp BP Pulse Ox 98.5 F 73 17 123/59 L 96 06/14/19 23:43 06/15/19 02:00 06/14/19 23:43 06/14/19 23:43 06/14/19 23:43 Intake & Output 06/14/19 06/15/19 06/16/19 06:59 06:59 06:59 Intake Total 660 939 Balance 660 939 Weight 64.9 kg General appearance: PRESENT: no acute distress, well-developed, well-nourished Head exam: PRESENT: atraumatic, normocephalic Eye exam: PRESENT: conjunctiva pink, EOMI, PERRLA. ABSENT: scleral icterus Ear exam: PRESENT: normal external ear exam Mouth exam: PRESENT: moist, tongue midline Neck exam: ABSENT: carotid bruit, JVD, lymphadenopathy, thyromegaly Respiratory exam: PRESENT: clear to auscultation dianne. ABSENT: rales, rhonchi, wheezes Cardiovascular exam: PRESENT: RRR. ABSENT: diastolic murmur, rubs, systolic murmur Pulses: PRESENT: normal dorsalis pedis pul Vascular exam: PRESENT: normal capillary refill GI/Abdominal exam: PRESENT: normal bowel sounds, soft. ABSENT: distended, guarding, mass, organolmegaly, rebound, tenderness Rectal exam: PRESENT: deferred Extremities exam: PRESENT: full ROM. ABSENT: calf tenderness, clubbing, pedal edema Neurological exam: PRESENT: alert, awake, oriented to person, oriented to place, oriented to time, oriented to situation, CN II-XII grossly intact. ABSENT: motor sensory deficit Psychiatric exam: PRESENT: appropriate affect, normal mood. ABSENT: homicidal ideation, suicidal ideation Skin exam: PRESENT: dry, intact, warm. ABSENT: cyanosis, rash Results Laboratory Results: 06/15/19 06:50 06/15/19 06:50 06/15/19 06/15/19 06:50 06:50 WBC 9.9 RBC 3.40 L Hgb 10.1 L Hct 29.4 L MCV 87 MCH 29.7 MCHC 34.3 RDW 15.5 H Plt Count 331 Seg Neutrophils % Not Reportable Sodium 131.5 L Potassium 3.7 Chloride 98 Carbon Dioxide 24 Anion Gap 10 BUN 20 Creatinine 0.76 Est GFR ( Amer) > 60 Glucose 112 H Calcium 8.1 L Magnesium 1.9 Total Bilirubin 0.8 AST 23 Alkaline Phosphatase 68 Total Protein 6.0 L Albumin 2.6 L Impressions: Chest X-Ray 06/12/19 00:00 IMPRESSION: Increased consolidation of the left lung base and increased volume of left pleural effusion, now moderate. The right lung is normally aerated. Chest/Abdomen CTA 06/13/19 10:32 IMPRESSION: 1. There is no aortic aneurysm or dissection. There is no pulmonary embolus. 2. There is reduced volume in the left lung. There is spiculated nodularity that is fairly extensive but that does show some improvement. It is possible that this is infectious/inflammatory. 3. There is masslike density in associated with the mediastinum and left hilum. Recommend PET-CT. 4. Extensive airspace disease in the left lower lobe, atelectasis versus pneumonia. Modified Barium Swallow 06/14/19 00:00 IMPRESSION: NO EVIDENCE OF PENETRATION OR ASPIRATION. 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 PLEASE SEE SPEECH PATHOLOGIST REPORT FOR OTHER FINDINGS AND RECOMMENDATIONS. Assessment & Plan - Diagnosis (1) Dysphagia Qualifiers: Dysphagia type: esophageal phase Qualified Code(s): R13.10 - Dysphagia, unspecified Is this a current diagnosis for this admission?: Yes Plan: 2nd to fistula, transfer to [place] for hopeful intervention by thoracic surgery, will follow until transfer (2) Lung cancer Qualifiers: Laterality: left Lung location: lower lobe of lung Qualified Code(s): C34.32 - Malignant neoplasm of lower lobe, left bronchus or lung Is this a current diagnosis for this admission?: Yes Plan: could consider immunoRx as oupt upon d/c from [place] but would need nutrition to get there. Will follow - Time Time Spent with patient: 35 or more minutes Anticipated discharge: [facility] Within: within 24 hours - Inpatient Certification Based on my medical assessment, after consideration of the patient's comorbidities, presenting symptoms, or acuity I expect that the services needed warrant INPATIENT care.: Yes I certify that my determination is in accordance with my understanding of Medicare's requirements for reasonable and necessary INPATIENT services [42 CFR 412.3e].: Yes Medical Necessity: Need for Pain Control, Need for Surgery, Risk of Complication if Not Cared For in Hospital
[2019-06-15 08:25] LABS: ABSOLUTE LYMPHOCYTES# (MANUAL) 0.4 10^3/uL (0.5-4.7); ABSOLUTE MONOCYTES # (MANUAL) 0.6 10^3/uL (0.1-1.4); BASOPHILS % (MANUAL) 0 % (0-2); EOSINOPHILS % (MANUAL) 0 % (0-6); LYMPHOCYTES % (MANUAL) 4 % (13-45); MONOCYTES % (MANUAL) 6 % (3-13); SEGMENTED NEUTROPHILS % (MAN) 90 % (42-78); TOTAL CELLS COUNTED 100
[2019-06-15 08:26] LABS: ANISOCYTOSIS SLIGHT; OVALOCYTES SLIGHT; PLATELET COMMENT ADEQUATE; POIKILOCYTOSIS SLIGHT; TEAR DROP CELLS SLIGHT
[2019-06-15] MEDS ORDERED: MORPHINE SULFATE 10 MG/ML INJ IV PRN (08:26)
[2019-06-15] MEDS: INSULIN LISPRO 100 UNIT/ML 3 ML VIAL SUBCUT SCH ×2 (10:56→13:25)
--- NOTE | 2019-06-15 11:56 | PDOC TRANSFER SUMMARY ---
General Admission Date/PCP: 06/12/19 17:39 REGINA HARDY NP Resuscitation Status: Do Not Resuscitate - Transfer Diagnosis (1) Dysphagia Is this a current diagnosis for this admission?: Yes (2) Acute respiratory failure with hypoxia Is this a current diagnosis for this admission?: Yes (3) HTN (hypertension) Is this a current diagnosis for this admission?: Yes (4) Hx of coronary artery disease Is this a current diagnosis for this admission?: Yes (5) Hyperlipidemia Is this a current diagnosis for this admission?: Yes (6) Hyponatremia Is this a current diagnosis for this admission?: Yes (7) Lung cancer Is this a current diagnosis for this admission?: Yes (8) Pneumonia involving left lung Is this a current diagnosis for this admission?: Yes - Transfer Medications Home Medications: Atorvastatin Calcium [Lipitor 10 mg Tablet] 10 mg PO QHS 06/06/19 Clopidogrel Bisulfate [Plavix 75 mg Tablet] 75 mg PO DAILY 06/06/19 Dexamethasone [Decadron 4 mg Tablet] 4 mg PO WBRKFST 06/06/19 Hydrocodone/Chlorphen P-Stirex [Hydrocodone-Chlorphen ER Susp] 5 ml PO Q12HP PRN 06/06/19 Isosorbide Mononitrate [Imdur 30 mg Tablet.er] 30 mg PO DAILY 06/06/19 Metoprolol Tartrate [Lopressor 25 mg Tablet] 25 mg PO Q12 MDD NOT FILLED SINCE 04/0406/06/19 Ondansetron [Zofran Odt 4 mg Tablet] 8 mg PO Q8HP PRN 06/06/19 Docusate Sodium [Colace 100 mg Capsule] 100 mg PO DAILYP PRN 06/13/19 Hydrocodone/Acetaminophen [[place] 5-325 mg Tablet] 1 tab PO Q4HP PRN 06/13/19 Levofloxacin [Levaquin 750 mg Tablet] 750 mg PO DAILY MDD 5 DAYS, 06/07/19 06/13/19 Megestrol Acetate 20 ml PO DAILY 06/13/19 Promethazine HCl [Phenergan 25 mg Tablet] 25 mg PO Q4HP PRN 06/13/19 Transfer Medications: Current Medications Hydrocodone Bitart/Acetaminophen ([place] 5-325 Mg Tablet) 1 tab PO Q4HP PRN PRN Reason: FOR PAIN Stop: 06/21/19 09:33 Albuterol/Ipratropium (Duoneb 3 Ml Ampul) 3 ml NEB RTQ4HP PRN PRN Reason: SHORTNESS OF BREATH Stop: 07/12/19 18:23 Atorvastatin Calcium (Lipitor 10 Mg Tablet) 10 mg PO QHS [facility] Stop: 07/14/19 21:59 Clopidogrel Bisulfate (Plavix 75 Mg Tablet) 75 mg PO DAILY JOYCE Stop: 07/14/19 09:59 Last Admin: 06/14/19 11:02 Dose: Not Given Documented by: Dexamethasone (Decadron 4 Mg Tablet) 4 mg PO WBRKFST [facility] Stop: 07/15/19 07:59 Dextrose (Dextrose Inj 50% Syringe (25 Gm/50 Ml)) 12.5 gm IV PRN PRN; Protocol PRN Reason: FOR BG 50-69 IN ALERT PATIENT Stop: 07/14/19 09:34 Dextrose (Dextrose Inj 50% Syringe (25 Gm/50 Ml)) 25 gm IV PRN PRN; Protocol PRN Reason: PER PROTOCOL Stop: 07/14/19 09:34 Docusate Sodium (Colace 100 Mg Capsule) 100 mg PO DAILYP PRN PRN Reason: FOR CONSTIPATION Stop: 07/14/19 09:33 Glucagon (Glucagen Inj 1 Mg Vial) 1 mg IM PRN PRN; Protocol PRN Reason: Evaluate for BG < 70 Stop: 07/14/19 09:34 Glucose (Glutose 40% Gel 15 Gm Tube) 15 gm PO PRN PRN; Protocol PRN Reason: FOR BG 50-69 IN ALERT PATIENT Stop: 07/14/19 09:34 Glucose (Glutose 40% Gel 15 Gm Tube) 30 gm PO PRN PRN; Protocol PRN Reason: FOR BG < 50 IN ALERT PATIENT Stop: 07/14/19 09:34 Hydralazine HCl (Apresoline Inj/Pf 20 Mg/1 Ml Sdv) 10 mg IV Q3HP PRN PRN Reason: Give For Sbp > [150] Stop: 07/14/19 09:34 Levofloxacin/Dextrose (Levaquin Rtu 750 Mg/D5w 150 Ml Premix) 750 mg in 150 mls @ 100 mls/hr IV QHS [facility] Stop: 06/20/19 21:59 Last Admin: 06/14/19 21:38 Dose: 150 mls/hrs, 100 mls/hr Documented by: Dextrose/Sodium Chloride (D5ns 1000 Ml Iv Soln) 1,000 mls @ 80 mls/hr IV CONTINUOUS PRN PRN Reason: THIS MED IS NOT "PRN" Stop: 07/14/19 12:20 Last Admin: 06/15/19 01:03 Dose: 80 mls/hr Documented by: Insulin Human Lispro (Humalog Insulin 100 Unit/1 Ml 3 Ml Vial) 0 - 12 unit SUBCUT ACHS [facility]; Protocol Stop: 07/14/19 10:59 Last Admin: 06/15/19 10:56 Dose: Not Given Documented by: Isosorbide Mononitrate (Imdur 30 Mg Tablet.Er) 30 mg PO DAILY [facility] Stop: 07/14/19 09:59 Last Admin: 06/14/19 11:02 Dose: Not Given Documented by: Lorazepam (Ativan Inj 2 Mg/1 Ml Vial) 1 mg IV Q4HP PRN PRN Reason: ANXIETY Stop: 06/22/19 07:31 Last Admin: 06/15/19 09:05 Dose: 1 mg Documented by: Megestrol Acetate (Megace Jaida 400 Mg/10 Ml Udcup) 800 mg PO DAILY [facility] Stop: 07/14/19 10:59 Last Admin: 06/14/19 12:39 Dose: Not Given Documented by: Metoprolol Tartrate (Lopressor 25 Mg Tablet) 25 mg PO Q12 [facility] Stop: 07/14/19 09:59 Last Admin: 06/14/19 11:02 Dose: Not Given Documented by: Morphine Sulfate (Morphine 10 Mg/Ml Inj) 2 mg IV Q3HP PRN PRN Reason: FOR PAIN Stop: 06/22/19 08:25 Patient Own Medication (Hydrocodone/Chlorphen P-Stirex [Hydrocodone-Chlorphen Er Susp]) 5 ml PO Q12HP PRN PRN Reason: COUGH Sodium Chloride (Saline Flush 2.5 Ml Monoject Prefil Syrin) 2.5 ml IV Q8 [facility] Stop: 07/12/19 21:59 Last Admin: 06/15/19 05:21 Dose: Not Given Documented by: - Allergies Allergies/Adverse Reactions: lisinopril Allergy (Verified 06/08/19 21:49) niacin Allergy (Verified 06/08/19 21:49) Hospital Course Hospital Course: EBEN BLOOD SR is a 63 year old male past medical history of CAD, COPD, recently diagnosed lung cancer status post 1 round of chemotherapy, presented to ED complaining of dysphagia and shortness of breath. (1) Dysphagia Dysphagia to solids and liquids. Possibly complication of stage III cancer. Modified barium swallow positive for fistula between the pelvis and left hilum. Patient pending transfer to [facility] for possible stent placement by thoracic surgeon. Dr Walker has talked to Dr Kirt Alvarez at [facility] who has graciously accepted the patient for possible stent placement. I have talked with Dr Ruddy Gaytan Hospitalist at [facility] who has graciously accepted the patient under his care. Speech therapy consulted, has signed off at this point as the cause of dysphagia is due to esophageal phase. Continue n.p.o. to avoid aspiration pneumonitis, D5W NS. Switch p.o. medication to IV if possible. (2) Acute respiratory failure with hypoxia Secondary to persistent to post obstructive pneumonia/pneumonitis gated by stage III lung cancer. 06/13/2018. CTA negative for any PE, persistent left lung mass with left flank is volume. 06/14/2018. 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 Continue empiric IV antibiotics, supplemental oxygen, duo nebs, pulmonary to ileting, incentive spirometry. (3) HTN (hypertension) Normotensive. Euvolemic. Home meds are metoprolol 25 mg p.o. twice daily, and a 30 mg p.o. daily. Restart home meds. If p.o. intolerant can give PRN IV hydralazine and PRN IV metoprolol. Adjust meds as needed. Outpatient PCP follow-up. (4) Hx of coronary artery disease Denies any anginal pain. Continue antiplatelets, beta-blockers, statins. Outpatient PCP follow-up. (5) Hyperlipidemia Restarted on Atorvastatin (6) Hyponatremia Improving. 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 Continue cautious IV NS, guided by volume status. Monitor for seizures. Sodium level tomorrow. (7) Lung cancer Stage III lung cancer, status post [address] Walker as outpatient. Currently chemotherapy on hold due to complications. Outpatient oncology follow-up. (8) Pneumonia involving left lung Post obstructive/aspiration pneumonia/pneumonitis caused by by esophageal f istula to the left hilum due to underlying left lung malignancy. Received 3 days of IV antibiotics. Received 3 days of IV levofloxacin. Physical Exam Vital Signs: Temp Pulse Resp BP Pulse Ox 98.0 F 77 20 138/59 H 98 06/15/19 08:58 06/15/19 08:58 06/15/19 08:58 06/15/19 08:58 06/15/19 08:58 Intake & Output 06/14/19 06/15/19 06/16/19 06:59 06:59 06:59 Intake Total 660 939 Balance 660 939 Weight 64.9 kg General appearance: PRESENT: no acute distress, well-developed, well-nourished Head exam: PRESENT: atraumatic, normocephalic Eye exam: PRESENT: conjunctiva pink, EOMI, PERRLA. ABSENT: scleral icterus Ear exam: PRESENT: normal external ear exam Mouth exam: PRESENT: moist, tongue midline Neck exam: ABSENT: carotid bruit, JVD, lymphadenopathy, thyromegaly Respiratory exam: PRESENT: clear to auscultation dianne, decreased breath sounds - LL. ABSENT: rales, rhonchi, wheezes Cardiovascular exam: PRESENT: RRR. ABSENT: diastolic murmur, rubs, systolic murmur Pulses: PRESENT: normal dorsalis pedis pul Vascular exam: PRESENT: normal capillary refill GI/Abdominal exam: PRESENT: normal bowel sounds, soft. ABSENT: distended, guarding, mass, organolmegaly, rebound, tenderness Rectal exam: PRESENT: deferred Extremities exam: PRESENT: full ROM. ABSENT: calf tenderness, clubbing, pedal edema Neurological exam: PRESENT: alert, awake, oriented to person, oriented to place, oriented to time, oriented to situation, CN II-XII grossly intact. ABSENT: motor sensory deficit Psychiatric exam: PRESENT: anxious Skin exam: PRESENT: dry, intact, warm. ABSENT: cyanosis, rash Results Laboratory Results: 06/15/19 06:50 06/15/19 06:50 06/15/19 06/15/19 06:50 06:50 WBC 9.9 RBC 3.40 L Hgb 10.1 L Hct 29.4 L MCV 87 MCH 29.7 MCHC 34.3 RDW 15.5 H Plt Count 331 Seg Neutrophils % Not Reportable Sodium 131.5 L Potassium 3.7 Chloride 98 Carbon Dioxide 24 Anion Gap 10 BUN 20 Creatinine 0.76 Est GFR ( Amer) > 60 Glucose 112 H Calcium 8.1 L Magnesium 1.9 Total Bilirubin 0.8 AST 23 Alkaline Phosphatase 68 Total Protein 6.0 L Albumin 2.6 L Impressions: Chest X-Ray 06/12/19 00:00 IMPRESSION: Increased consolidation of the left lung base and increased volume of left pleural effusion, now moderate. The right lung is normally aerated. Chest/Abdomen CTA 06/13/19 10:32 IMPRESSION: 1. There is no aortic aneurysm or dissection. There is no pulmonary embolus. 2. There is reduced volume in the left lung. There is spiculated nodularity that is fairly extensive but that does show some improvement. It is possible that this is infectious/inflammatory. 3. There is masslike density in associated with the mediastinum and left hilum. Recommend PET-CT. 4. Extensive airspace disease in the left lower lobe, atelectasis versus pneumonia. Modified Barium Swallow 06/14/19 00:00 IMPRESSION: NO EVIDENCE OF PENETRATION OR ASPIRATION. 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 PLEASE SEE SPEECH PATHOLOGIST REPORT FOR OTHER FINDINGS AND RECOMMENDATIONS.
[2019-06-15 13:08] VITALS: BP 126/54
== END 2019-06-15 15:04 | disposition short-term general hospital (02) ==
LOC: 5 17:39 → INTOOBSV 17:39
PROVIDERS: ADMIT Family Medicine; ATTEND Family Medicine
DX: R13.19 Other dysphagia (principal); J96.01 Acute respiratory failure with hypoxia; I10 Essential (primary) hypertension; I25.10 Atherosclerotic heart disease of native coronary artery without angina pectoris; E78.5 Hyperlipidemia, unspecified; E87.1 Hypo-osmolality and hyponatremia; C34.32 Malignant neoplasm of lower lobe, left bronchus or lung; J69.8 Pneumonitis due to inhalation of other solids and liquids; J44.9 Chronic obstructive pulmonary disease, unspecified; F41.9 Anxiety disorder, unspecified; R60.0 Localized edema; K22.8 Other specified diseases of esophagus; Z79.899 Other long term (current) drug therapy; Z79.02 Long term (current) use of antithrombotics/antiplatelets; Z66 Do not resuscitate; Z95.5 Presence of coronary angioplasty implant and graft; Z87.01 Personal history of pneumonia (recurrent); Z87.891 Personal history of nicotine dependence; J86.0 Pyothorax with fistula
CPT/HCPCS: 36415 ×2; 82962 ×2; 83735; 85025 ×2; 80053 ×2; 71045; 74230; 71275; 93005; 93010; 92610; 92611; J1940 ×2; J2270 ×3; J2060; J3490; J7042 ×2; J1956 ×3